=== PATIENT | male | born 1970 | race Caucasian/White ===

== ENCOUNTER 2017-06-08 04:32 | Observation (INO) | payer SELFPAY ==
[~2017-06-08] VITALS: Ht 177.8 cm; Wt 73.0 kg
[2017-06-08] VITALS (7 sets, daily range): BP systolic 109–129; BP diastolic 65–77; PULSE 71–87; RESP 16–18; TEMP 98.1–98.8; O2SAT 95–98
[~2017-06-08 04:32] MED LIST: SERO100T PO
[2017-06-08] MEDS ORDERED: NITROGLYCERIN 0.4 MG SL 25 TABS/BTL SL ONE (04:45)
[2017-06-08] MEDS ORDERED: SODIUM CHLORIDE 0.9% FLUSH 10 ML FLUSH IVF PRN (04:45)
[2017-06-08] MEDS ORDERED: SODIUM CHLORID 0.9% 500 ML INJ 500 ML IV ONE (04:45)
[2017-06-08] MEDS ORDERED: NITROGLYCERIN 2% OINT 1 GM PACKET TOP ONE (04:45)
[2017-06-08 04:55] LABS: AUTOMATED NEUTROPHIL # 10.1 TH/MM3 (1.8-7.7); BASOPHIL # 0.1 TH/MM3 (0-0.2); BASOPHIL % 0.6 % (0.0-2.0); EOSINOPHIL # 0.2 TH/MM3 (0-0.4); EOSINOPHIL % 1.4 % (0.0-4.0); HEMATOCRIT 35.1 % (39.0-51.0); HEMO FLAGS DIFF FINAL; MEAN CELL VOLUME 89.3 FL (80.0-100.0); MEAN CORPUSCULAR HEMOGLOBIN 31.8 PG (27.0-34.0); MEAN CORPUSCULAR HGB CONC 35.6 % (32.0-36.0); MONO % 5.7 % (0.0-8.0); NEUT % 71.3 % (16.0-70.0); PLATELET COUNT 270 TH/MM3 (150-450); RED BLOOD COUNT 3.93 MIL/MM3 (4.50-5.90); RED CELL DISTRIBUTION WIDTH 13.9 % (11.6-17.2); WHITE BLOOD COUNT 14.1 TH/MM3 (4.0-11.0)
[2017-06-08 05:16] LABS: APTT (PATIENT) 26.9 SEC (24.3-30.1); PROTHROMBIN TIME - PATIENT 10.5 SEC (9.8-11.6)
[2017-06-08 05:26] LABS: ALT (GPT) 14 U/L (12-78); ANION GAP 7 MEQ/L (5-15); AST (GOT) 13 U/L (15-37); BICARBONATE 23.7 MEQ/L (21.0-32.0); BLOOD UREA NITROGEN 20 MG/DL (7-18); CHLORIDE 110 MEQ/L (98-107); GLOMERULAR FILTRATION RATE 75 ML/MIN (>89); MAGNESIUM 2.1 MG/DL (1.5-2.5); POTASSIUM 4.1 MEQ/L (3.5-5.1); SODIUM (NA) 141 MEQ/L (136-145)
[2017-06-08 05:30] LABS: ALKALINE PHOSPHATASE 100 U/L (45-117); TOTAL BILIRUBIN ADULT 0.2 MG/DL (0.2-1.0)
[2017-06-08 05:32] LABS: CREATINE KINASE 99 U/L (39-308)
--- NOTE | 2017-06-08 05:33 | RADRPT ---
EXAM DATE/TIME: 06/08/2017 04:56 [place] COMPARISON: No previous studies available for comparison. INDICATIONS : Pt having chest pain tonight MEDICAL HISTORY : None. SURGICAL HISTORY : None. ENCOUNTER: Initial ACUITY: 1 day PAIN SCORE: 7/10 LOCATION: Bilateral chest FINDINGS: Portable AP view of the chest demonstrates a normal-sized cardiac silhouette. No effusion, consolidat ion, or pneumothorax is visualized. The bones and soft tissues demonstrate no acute abnormality. CONCLUSION: No acute cardiopulmonary abnormality is identified. Eddie Wilkes MD on June 08, 2017 at 5:32 Board Certified Radiologist. This report was verified electronically.
--- NOTE | 2017-06-08 06:00 | PD ---
HPI Chief Complaint: Chest Pain Time Seen by Provider: 04:38 Travel History International Travel<30 days: No Contact w/Intl Traveler<30days: No Traveled to known affect area: No History of Present Illness HPI The patient is a 46 year old male who presents to the [facility] emergency department with a history of chest pain that began a month ago. It is coming and going. It is associated with left arm numbness tingling, lightheaded sensation, shortness of breath, and nausea without vomiting. He denies diaphoresis. It began again while he was playing cards approximately 30 minutes prior to arrival. He last used cocaine 2 days ago. He reportedly has a history of having a silent heart attack in his 20s after smoking cocaine and had a seizure. The patient denies ever having stress testing done previously. On review of systems, the patient denies any recent fevers, neck pain, abdominal pain, vomiting, diarrhea, urinary symptoms, or neurologic symptoms. The patient reports that over the last 3-4 days he has had cough and congestion. [facility] Past Medical History Narrative Medical The patient's past medical history is significant for paranoid schizophrenia, silent heart attack in his 20s, bipolar disorder, tobacco use, cocaine use. Asthma: Yes Bipolar Disorder: Yes Diminished Hearing: No Psychiatric: Yes (OCD) Schizophrenia: Yes Seizures: Yes Tetanus Vaccination: > 5 Years Influenza Vaccination: No Past Surgical History Narrative Surgical The patient's past surgical history is significant for a tumor removal from the right eye. Eye Surgery: Yes (TUMOR RIGHT EYE-CANCER) Social History Alcohol Use: No Tobacco Use: Yes (2-3 PPD currently) Substance Use: Yes (COCAINE) Allergies-Medications (Allergen,Severity, Reaction): Coded Allergies: Depakote (Verified Allergy, Unknown, Nausea/Vomiting, 06/08/17) Per pt. Reported Meds & Prescriptions Reported Meds & Active Scripts Active No Active Prescriptions or Reported Medications Review of Systems Except as stated in HPI: all other systems reviewed are Neg General / Constitutional: No: Fever Eyes: No: Visual changes HENT: No: Headaches Cardiovascular: Positive: Chest Pain or Discomfort, Dyspnea on exertion Respiratory: Positive: Shortness of Breath Gastrointestinal: No: Abdominal Pain Genitourinary: No: Dysuria Musculoskeletal: No: Pain Skin: No Rash Neurologic: No: Weakness Psychiatric: No: Depression Endocrine: No: Polydipsia Hematologic/Lymphatic: No: Easy Bruising Physical Exam Narrative General: The patient is a well-developed well-nourished female in no acute distress. Head and Neck exam: Head is normocephalic atraumatic. Eyes: EOMI, pupils are equal round and reactive to light. Nose: Midline septum with pink mucous membranes Mouth: Dentition unremarkable. Moist mucus membranes. Posterior oropharynx is not erythematous. No tonsillar hypertrophy. Uvula midline. Airway patent. Neck: No palpable lymphadenopathy. No nuchal rigidity. No thyromegaly. Cardiovascular: Regular rate and rhythm without murmurs, gallops, or rubs. Lungs: Clear to auscultation bilaterally. No wheezes, rhonchi, or rales. Abdomen: Soft, without tenderness to palpation in all 4 quadrants of the abdomen. No guarding, rebound, or rigidity. Normal bowel sounds are audible. No tenderness on palpation of McBurney's point. Negative [place] sign. Extremities: No clubbing, cyanosis, or edema. 2+ pulses in all 4 extremities. No calf tenderness on palpation. Back: No spinous process tenderness to palpation. No costovertebral angle tenderness to palpation. Neurologic Exam: Grossly nonfocal Skin Exam: No rash noted. Intact skin that is warm and dry. Data Data Last Documented VS Vital Signs Date Time Temp Pulse Resp B/P Pulse Ox O2 Delivery O2 Flow Rate FiO2 06/08/17 06:00 83 17 111/74 95 Room Air 06/08/17 04:37 98.8 Orders Electrocardiogram (06/08/17 04:38) B-Type Natriuretic Peptide (06/08/17 04:38) Ckmb (Isoenzyme) Profile (06/08/17 04:38) Complete Blood Count With Diff (06/08/17 04:38) Comprehensive Metabolic Panel (06/08/17 04:38) Magnesium (Mg) (06/08/17 04:38) Prothrombin Time / Inr (Pt) (06/08/17 04:38) Act Partial Throm Time (Ptt) (06/08/17 04:38) Troponin I (06/08/17 04:38) Lipase (06/08/17 04:38) Chest, Single Ap (06/08/17 04:38) Ecg Monitoring (06/08/17 04:38) Bilateral Bp Monitoring (06/08/17 04:38) Iv Access Insert/Monitor (06/08/17 04:38) Oximetry (06/08/17 04:38) Oxygen Administration (06/08/17 04:38) Nitroglycerin 2% Oint (Nitroglycerin 2% (06/08/17 04:45) Sodium Chloride 0.9% Flush (Ns Flush) (06/08/17 04:45) Nitroglycerin Sl (Nitrostat Sl) (06/08/17 04:45) Sodium Chlorid 0.9% 500 Ml Inj (Ns 500 M (06/08/17 04:45) Admit Order (Ed Use Only) (06/08/17 06:26) Labs Laboratory Tests Test 06/08/17 04:42 White Blood Count 14.1 TH/MM3 Red Blood Count 3.93 MIL/MM3 Hemoglobin 12.5 GM/DL Hematocrit 35.1 % Mean Corpuscular Volume 89.3 FL Mean Corpuscular Hemoglobin 31.8 PG Mean Corpuscular Hemoglobin 35.6 % Concent Red Cell Distribution Width 13.9 % Platelet Count 270 TH/MM3 Mean Platelet Volume 7.1 FL Neutrophils (%) (Auto) 71.3 % Lymphocytes (%) (Auto) 21.0 % Monocytes (%) (Auto) 5.7 % Eosinophils (%) (Auto) 1.4 % Basophils (%) (Auto) 0.6 % Neutrophils # (Auto) 10.1 TH/MM3 Lymphocytes # (Auto) 3.0 TH/MM3 Monocytes # (Auto) 0.8 TH/MM3 Eosinophils # (Auto) 0.2 TH/MM3 Basophils # (Auto) 0.1 TH/MM3 CBC Comment DIFF FINAL Differential Comment Prothrombin Time 10.5 SEC Prothromb Time International 1.0 RATIO Ratio Activated Partial 26.9 SEC Thromboplast Time Sodium Level 141 MEQ/L Potassium Level 4.1 MEQ/L Chloride Level 110 MEQ/L Carbon Dioxide Level 23.7 MEQ/L Anion Gap 7 MEQ/L Blood Urea Nitrogen 20 MG/DL Creatinine 1.06 MG/DL Estimat Glomerular Filtration 75 ML/MIN Rate Random Glucose 92 MG/DL Calcium Level 8.4 MG/DL Magnesium Level 2.1 MG/DL Total Bilirubin 0.2 MG/DL Aspartate Amino Transf 13 U/L (AST/SGOT) Alanine Aminotransferase 14 U/L (ALT/SGPT) Alkaline Phosphatase 100 U/L Total Creatine Kinase 99 U/L Troponin I LESS THAN 0.02 NG/ML B-Type Natriuretic Peptide 11 PG/ML Total Protein 7.0 GM/DL Albumin 3.3 GM/DL Lipase 169 U/L MDM Medical Decision Making Medical Screen Exam Complete: Yes Emergency Medical Condition: Yes Medical Record Reviewed: Yes Interpretation(s) Last Impressions Chest X-Ray 06/08/17 0438 Signed Impressions: Service Date/Time: Thursday, June 08, 2017 04:56 - CONCLUSION: No acute cardiopulmonary abnormality is identified. Eddie Wilkes MD Differential Diagnosis Acute coronary syndrome, versus coronary artery spasm related to cocaine use, versus acid reflux, versus anxiety disorder, versus pleurisy Narrative Course During the course of the patients emergency department visit, the patients history, examination, and differential diagnosis were reviewed with the patient. The patient had IV access obtained and blood work sent for analysis. 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 An ECG was done on arrival that shows a sinus rhythm heart rate of 79, no acute ST segment elevation noted. The patient was initially provided nitroglycerin sublingual 1, normal saline a 500 mL bolus, nitroglycerin 1 inch the chest wall. The patients laboratory studies were reviewed and remarkable for a white count of 14.1, hemoglobin 12.5, platelets 270 with 71.3 neutrophils. , CMP is remarkable for chloride of 110, BUN 20, GFR 75, calcium 8.4, AST 13 and a CPK 99 , troponin I less than 0.02, BNP is 11, lipase 169, PT 10.5, PTT 26.9 Radiology studies were reviewed and remarkable for a chest x-ray that showed no acute cardiopulmonary abnormality. The patients results were discussed with the patient, including the plan of care. I explained that further testing and/ or monitoring is indicated based on the patients history, examination, and/ or laboratory findings. Therefore, I recommended admission for additional evaluation. The patient expressed understanding and was agreeable with this plan. The patient was admitted to the hospital in stable condition and sent to a bed under the care of the chest pain center. Diagnosis Primary Impression: Chest pain, rule out acute myocardial infarction Admitting Information Admitting Physician Requests: Observation Scripts No Active Prescriptions or Reported Meds Elissa Arreola MD Jun 08, 2017 06:00
[2017-06-08] MEDS ORDERED: SODIUM CHLORIDE 0.9% FLUSH 10 ML FLUSH IV FLUSH PRN (07:00)
--- NOTE | 2017-06-08 08:39 | EKG ---
Date Performed: 06/08/2017 Time Performed: 04:37:11 PTAGE: 46 years EKG: Sinus rhythm NORMAL ECG NO PREVIOUS TRACING DOCTOR: Otto Lind Interpretating Date/Time 06/08/2017 08:39:07
[2017-06-08 08:52] LABS: CREATINE KINASE 88 U/L (39-308)
[2017-06-08] MEDS ORDERED: SODIUM CHLORIDE 0.9% FLUSH 10 ML FLUSH IV FLUSH SCH (09:00)
--- NOTE | 2017-06-08 12:25 | HHI.HP ---
HPI Primary Care Physician No Primary Care Physician Chief Complaint Chest pain History of Present Illness This is a 46-year-old male that presents to the ED with a complaint of chest discomfort. Upon trying to get any further information from the patient he would become very upset. He would begin screaming and cursing at me. using cocaine a couple days ago. Also medicine tobacco abuse. Review of Systems ROS Limitations: Uncooperative, Refused Cardiovascular: COMPLAINS OF: Chest pain Past Family Social History Allergies: Coded Allergies: Depakote (Verified Allergy, Unknown, Nausea/Vomiting, 06/08/17) Per pt. Past Medical History Patient would not discuss about his past medical history. Admits to cocaine abuse and tobacco abuse. Past Surgical History Patient would not discuss his surgical history. Reported Medications Reported Meds & Active Scripts Active No Active Prescriptions or Reported Medications Active Ordered Medications Current Medications Medications (Trade) Dose Ordered Sig/Charly Route Start Time Stop Time Status Last Admin (NS Flush) 2 ml UNSCH PRN IVF 06/08/17 04:45 (NS Flush) 2 ml UNSCH PRN IV FLUSH 06/08/17 07:00 (NS Flush) 2 ml BID IV FLUSH 06/08/17 09:00 06/08/17 09:39 Family History Patient would not discuss his family medical history. Social History Patient missed cocaine and tobacco abuse. Physical Exam Vital Signs Vital Signs Date Time Temp Pulse Resp B/P Pulse Ox O2 Delivery O2 Flow Rate FiO2 06/08/17 10:30 71 06/08/17 08:37 98.1 87 16 129/77 97 06/08/17 07:22 98 21 06/08/17 06:00 83 17 111/74 95 Room Air 06/08/17 05:17 17 06/08/17 05:00 80 17 111/65 96 Room Air 06/08/17 04:42 80 18 109/72 98 Room Air 06/08/17 04:37 98.8 80 18 119/77 98 Physical Exam GENERAL: This is a well-nourished, well-developed patient. Patient becomes very upset multiple times. He was able to calm down for Dr. Martin to evaluate him but however he would not really answer any more questions. He allowed us to listen to his heart and lungs. Cardiovascular: Regular rate and rhythm without murmur gallop or rubs. Respiratory: Lungs clear to auscultate bilaterally. No wheezing rales or rhonchi. No use of assessment muscles. Laboratory Laboratory Tests Test 06/08/17 06/08/17 04:42 07:58 White Blood Count 14.1 Red Blood Count 3.93 Hemoglobin 12.5 Hematocrit 35.1 Mean Corpuscular Volume 89.3 Mean Corpuscular Hemoglobin 31.8 Mean Corpuscular Hemoglobin 35.6 Concent Red Cell Distribution Width 13.9 Platelet Count 270 Mean Platelet Volume 7.1 Neutrophils (%) (Auto) 71.3 Lymphocytes (%) (Auto) 21.0 Monocytes (%) (Auto) 5.7 Eosinophils (%) (Auto) 1.4 Basophils (%) (Auto) 0.6 Neutrophils # (Auto) 10.1 Lymphocytes # (Auto) 3.0 Monocytes # (Auto) 0.8 Eosinophils # (Auto) 0.2 Basophils # (Auto) 0.1 CBC Comment DIFF FINAL Differential Comment Prothrombin Time 10.5 Prothromb Time International 1.0 Ratio Activated Partial 26.9 Thromboplast Time Sodium Level 141 Potassium Level 4.1 Chloride Level 110 Carbon Dioxide Level 23.7 Anion Gap 7 Blood Urea Nitrogen 20 Creatinine 1.06 Estimat Glomerular Filtration 75 Rate Random Glucose 92 Calcium Level 8.4 Magnesium Level 2.1 Total Bilirubin 0.2 Aspartate Amino Transf 13 (AST/SGOT) Alanine Aminotransferase 14 (ALT/SGPT) Alkaline Phosphatase 100 Total Creatine Kinase 99 88 Troponin I LESS THAN 0.02 LESS THAN 0.02 B-Type Natriuretic Peptide 11 Total Protein 7.0 Albumin 3.3 Lipase 169 Result Diagram: 06/08/17 0442 06/08/17 0442 Assessment and Plan Assessment and Plan * Chest pain: Patient had first 2 sets of cardiac enzymes and EKGs for ruling out purposes. He was seen by Dr. Maritn cardiology in the chest pain center as well. We were going to do a Moisés protocol ETT which she had agreed to perform however when EKG personnel arrived to his room to take him to the stress from he became irate. Began cursing. Told her to leave the room. I tried to calm the patient down however patient began screaming and cursing at me as well. He began ripping off his monitor leads and was attempting to pull out his IV. He allowed the nurse to pull the IV out however would not allow dressing and stormed out of the room cursing and screaming as he walked down the goncalves. I explained to him he would be leaving AGAINST MEDICAL ADVICE and he just shouted profanity and refuses sign the paperwork. * Cocaine abuse: I did discuss with the patient he should not be using cocaine any longer. * Tobacco abuse: Patient counseled on importance of smoking cessation. * Patient left AMA. Jarrell Fontaine Jun 08, 2017 12:25
--- NOTE | 2017-06-08 12:31 | PD.AMA ---
Against Medical Advice Note Diagnosis: (1) Cocaine abuse (2) Tobacco abuse (3) Left against medical advice Discharge Disposition: Against Medical Advice AMA Statement Patient Gonzalo ReyesJr has decided to leave the hospital against medical advice. This patient has the capacity to refuse care and understands the risks of leaving, including permanent disability and/or , and has had an opportunity to ask questions about his condition. The patient has been informed that he may return for care at any time, and follow up has been arranged/ advised. Jarrell Fontaine Jun 08, 2017 12:31
--- NOTE | 2017-06-09 12:21 | EKG ---
Date Performed: 06/08/2017 Time Performed: 07:54:04 PTAGE: 46 years EKG: Sinus rhythm NONSPECIFIC ST ELEVATION BORDERLINE ECG Since PREVIOUS TRACING , no significant change noted PREVIOUS TRACIN06/08/2017 04.37 DOCTOR: Gabriela Martin Interpretating Date/Time 06/09/2017 12:20:41
== END 2017-06-08 12:50 | disposition left against medical advice (07) ==
LOC: NEPE 04:32 → NEDA 06:28 → NEPFCDU 08:21
DX: R07.89 Other chest pain (principal); R20.0 Anesthesia of skin; R20.2 Paresthesia of skin; R42 Dizziness and giddiness; R06.02 Shortness of breath; R11.0 Nausea; R05 Cough; J45.909 Unspecified asthma, uncomplicated; I25.2 Old myocardial infarction; F31.9 Bipolar disorder, unspecified; F42.9 Obsessive-compulsive disorder, unspecified; F14.90 Cocaine use, unspecified, uncomplicated; F17.200 Nicotine dependence, unspecified, uncomplicated
CPT/HCPCS: 71010; 80053; 82550; 83690; 83735; 83880; 84484; 85025; 85610; 85730; 93005; 96360; 99285; G0378; J7040

== ENCOUNTER 2017-06-09 02:44 | Observation (INO) | payer SELFPAY ==
[~2017-06-09] VITALS: Ht 177.8 cm; Wt 70.0 kg
[2017-06-09 02:46] VITALS: BP 132/77; PULSE 78; RESP 16; TEMP 98.2; O2SAT 97
--- NOTE | 2017-06-09 03:13 | PD ---
HPI Chief Complaint: Chest Pain Time Seen by Provider: 02:59 Travel History International Travel<30 days: No Contact w/Intl Traveler<30days: No Traveled to known affect area: No History of Present Illness HPI The patient is a 46-year-old male who presents emergency department for chest pain. The patient states he's had intermittent chest pain or last several days which is located in the left side, radiates to the left scapula, sharp, and feels like a "plunger on my lungs". The patient does note mild shortness of breath, nausea, and diaphoresis with this chest pain. He denies any exertional activity. He does note he has "pins and needles "of the left upper extremity that is associated with this chest pain. He also complains of occasional blurry vision from both eyes when experiencing the chest pain. He denies any known history of hypertension, hyperlipidemia, diabetes, or CAD. He does have a history tobacco use at 2 packs per day, also states both of his parents had heart disease in their 60s. He denies any previous stress test. He was admitted to the chest pain Center yesterday, however, started using profanity at staff and left against medical secretary teacher. The patient's symptoms are moderate, there are no current alleviating or exacerbating factors. PFSH Past Medical History Asthma: Yes Bipolar Disorder: Yes Diminished Hearing: No Psychiatric: Yes (OCD) Schizophrenia: Yes Seizures: Yes Tetanus Vaccination: < 5 Years Influenza Vaccination: No Past Surgical History Eye Surgery: Yes (TUMOR RIGHT EYE-CANCER) Social History Alcohol Use: No Tobacco Use: Yes (2-3 PPD currently) Substance Use: Yes (COCAINE) Allergies-Medications (Allergen,Severity, Reaction): Coded Allergies: Depakote (Verified Allergy, Unknown, Nausea/Vomiting, 06/09/17) Per pt. Reported Meds & Prescriptions Reported Meds & Active Scripts Active No Active Prescriptions or Reported Medications Review of Systems Except as stated in HPI: all other systems reviewed are Neg General / Constitutional: No: Fever Eyes: Positive: Blurred Vision Cardiovascular: Positive: Chest Pain or Discomfort, Diaphoresis Respiratory: Positive: Shortness of Breath, Pleuritic Pain Gastrointestinal: Positive: Nausea Musculoskeletal: No: Edema Neurologic: No: Dizziness Physical Exam Narrative GENERAL: Awake, alert, pleasant 46-year-old male who appears his stated age and is in no acute respiratory distress. SKIN: Focused skin assessment warm/dry. HEAD: Atraumatic. Normocephalic. EYES: Pupils equal and round. No injection or drainage. ENT: No nasal bleeding or discharge. Breath smells of tobacco. NECK: Trachea midline. No JVD. CARDIOVASCULAR: Regular rate and rhythm. No murmur appreciated. RESPIRATORY: No accessory muscle use. Clear to auscultation. Breath sounds equal bilaterally. GASTROINTESTINAL: Abdomen soft, non-tender, nondistended. MUSCULOSKELETAL: No obvious deformities. No clubbing. No cyanosis. No edema. NEUROLOGICAL: Awake and alert. No obvious cranial nerve deficits. Motor grossly within normal limits. Normal speech. Nonfocal. PSYCHIATRIC: Odd affect. Data Data Last Documented VS Vital Signs Date Time Temp Pulse Resp B/P Pulse Ox O2 Delivery O2 Flow Rate FiO2 06/09/17 03:20 97 Room Air 06/09/17 03:15 82 18 126/84 06/09/17 02:46 98.2 Orders Electrocardiogram (06/09/17 03:05) Ckmb (Isoenzyme) Profile (06/09/17 03:05) Complete Blood Count With Diff (06/09/17 03:05) Comprehensive Metabolic Panel (06/09/17 03:05) Magnesium (Mg) (06/09/17 03:05) Prothrombin Time / Inr (Pt) (06/09/17 03:05) Act Partial Throm Time (Ptt) (06/09/17 03:05) Troponin I (06/09/17 03:05) Ecg Monitoring (06/09/17 03:05) Iv Access Insert/Monitor (06/09/17 03:05) Oximetry (06/09/17 03:05) Oxygen Administration (06/09/17 03:05) Aspirin Chew (Aspirin Chew) (06/09/17 03:15) Sodium Chloride 0.9% Flush (Ns Flush) (06/09/17 03:15) Nitroglycerin Sl (Nitrostat Sl) (06/09/17 03:15) Sodium Chlorid 0.9% 500 Ml Inj (Ns 500 M (06/09/17 03:15) Labs Laboratory Tests Test 06/09/17 03:20 White Blood Count 8.9 TH/MM3 Red Blood Count 4.11 MIL/MM3 Hemoglobin 12.4 GM/DL Hematocrit 37.2 % Mean Corpuscular Volume 90.4 FL Mean Corpuscular Hemoglobin 30.2 PG Mean Corpuscular Hemoglobin 33.4 % Concent Red Cell Distribution Width 13.7 % Platelet Count 265 TH/MM3 Mean Platelet Volume 7.0 FL Neutrophils (%) (Auto) 43.1 % Lymphocytes (%) (Auto) 42.4 % Monocytes (%) (Auto) 9.3 % Eosinophils (%) (Auto) 4.1 % Basophils (%) (Auto) 1.1 % Neutrophils # (Auto) 3.8 TH/MM3 Lymphocytes # (Auto) 3.8 TH/MM3 Monocytes # (Auto) 0.8 TH/MM3 Eosinophils # (Auto) 0.4 TH/MM3 Basophils # (Auto) 0.1 TH/MM3 CBC Comment DIFF FINAL Differential Comment Prothrombin Time 10.4 SEC Prothromb Time International 0.9 RATIO Ratio Activated Partial 27.3 SEC Thromboplast Time Sodium Level 142 MEQ/L Potassium Level 4.2 MEQ/L Chloride Level 107 MEQ/L Carbon Dioxide Level 27.7 MEQ/L Anion Gap 7 MEQ/L Blood Urea Nitrogen 16 MG/DL Creatinine 0.93 MG/DL Estimat Glomerular Filtration 87 ML/MIN Rate Random Glucose 83 MG/DL Calcium Level 8.4 MG/DL Magnesium Level 2.0 MG/DL Total Bilirubin 0.3 MG/DL Aspartate Amino Transf 8 U/L (AST/SGOT) Alanine Aminotransferase 13 U/L (ALT/SGPT) Alkaline Phosphatase 99 U/L Total Creatine Kinase 93 U/L Troponin I LESS THAN 0.02 NG/ML Total Protein 7.0 GM/DL Albumin 3.2 GM/DL MDM Medical Decision Making Medical Screen Exam Complete: Yes Emergency Medical Condition: Yes Medical Record Reviewed: Yes Interpretation(s) EKG reveals normal sinus rhythm with a rate of 76. No ischemic changes or ectopy noted. Laboratory Tests Test 06/09/17 03:20 White Blood Count 8.9 TH/MM3 Red Blood Count 4.11 MIL/MM3 Hemoglobin 12.4 GM/DL Hematocrit 37.2 % Mean Corpuscular Volume 90.4 FL Mean Corpuscular Hemoglobin 30.2 PG Mean Corpuscular Hemoglobin 33.4 % Concent Red Cell Distribution Width 13.7 % Platelet Count 265 TH/MM3 Mean Platelet Volume 7.0 FL Neutrophils (%) (Auto) 43.1 % Lymphocytes (%) (Auto) 42.4 % Monocytes (%) (Auto) 9.3 % Eosinophils (%) (Auto) 4.1 % Basophils (%) (Auto) 1.1 % Neutrophils # (Auto) 3.8 TH/MM3 Lymphocytes # (Auto) 3.8 TH/MM3 Monocytes # (Auto) 0.8 TH/MM3 Eosinophils # (Auto) 0.4 TH/MM3 Basophils # (Auto) 0.1 TH/MM3 CBC Comment DIFF FINAL Differential Comment Prothrombin Time 10.4 SEC Prothromb Time International 0.9 RATIO Ratio Activated Partial 27.3 SEC Thromboplast Time Sodium Level 142 MEQ/L Potassium Level 4.2 MEQ/L Chloride Level 107 MEQ/L Carbon Dioxide Level 27.7 MEQ/L Anion Gap 7 MEQ/L Blood Urea Nitrogen 16 MG/DL Creatinine 0.93 MG/DL Estimat Glomerular Filtration 87 ML/MIN Rate Random Glucose 83 MG/DL Calcium Level 8.4 MG/DL Magnesium Level 2.0 MG/DL Total Bilirubin 0.3 MG/DL Aspartate Amino Transf 8 U/L (AST/SGOT) Alanine Aminotransferase 13 U/L (ALT/SGPT) Alkaline Phosphatase 99 U/L Total Creatine Kinase 93 U/L Troponin I LESS THAN 0.02 NG/ML Total Protein 7.0 GM/DL Albumin 3.2 GM/DL Differential Diagnosis Differential diagnosis includes acute coronary syndrome, pleurisy, pneumonia, pulmonary embolism, pancreatitis, pericarditis, myocarditis. Narrative Course IV was established, labs are drawn and sent, and the patient was placed on cardiac telemetry monitoring and continuous pulse oximetry monitoring. EKG was ordered and interpreted. The patient was administered aspirin, nitroglycerin sublingual, and IV fluids. I reviewed the patient's medical course from June 08 where he had 2 negative troponins, chest x-ray was unremarkable, however, he became verbally abusive and left the hospital prior to obtaining a stress test. The patient does have atypical symptoms with 2 risk factors, therefore, will be 23 hour observation to the chest pain Center. He denies any cocaine use in the last 48 hours. The patient's initial troponin is negative, therefore, patient will be placed in the chest pain Center. Physician Communication Physician Communication The patient will be 23 hour observation to the chest pain center. Diagnosis Primary Impression: Chest pain Qualified Code: R07.9 - Chest pain, unspecified type Admitting Information Admitting Physician Requests: Observation Scripts No Active Prescriptions or Reported Meds Condition: Stable Sylvain Schulte MD Jun 09, 2017 03:13
[2017-06-09 03:15] VITALS: BP 126/84; PULSE 82; RESP 18; O2SAT 97
[2017-06-09] MEDS ORDERED: SODIUM CHLORID 0.9% 500 ML INJ 500 ML IV ONE (03:15)
[2017-06-09] MEDS ORDERED: NITROGLYCERIN 0.4 MG SL 25 TABS/BTL SL ONE (03:15)
[2017-06-09] MEDS ORDERED: ASPIRIN 81 MG CHEW TAB PO ONE (03:15)
[2017-06-09] MEDS ORDERED: SODIUM CHLORIDE 0.9% FLUSH 10 ML FLUSH IVF PRN (03:15)
[2017-06-09 03:56] LABS: AUTOMATED NEUTROPHIL # 3.8 TH/MM3 (1.8-7.7); BASOPHIL # 0.1 TH/MM3 (0-0.2); BASOPHIL % 1.1 % (0.0-2.0); EOSINOPHIL # 0.4 TH/MM3 (0-0.4); EOSINOPHIL % 4.1 % (0.0-4.0); HEMATOCRIT 37.2 % (39.0-51.0); HEMO FLAGS DIFF FINAL; LYMPH % 42.4 % (9.0-44.0); LYMPHOCYTE # 3.8 TH/MM3 (1.0-4.8); MEAN CELL VOLUME 90.4 FL (80.0-100.0); MEAN CORPUSCULAR HEMOGLOBIN 30.2 PG (27.0-34.0); MEAN CORPUSCULAR HGB CONC 33.4 % (32.0-36.0); MONO % 9.3 % (0.0-8.0); NEUT % 43.1 % (16.0-70.0); PLATELET COUNT 265 TH/MM3 (150-450); RED BLOOD COUNT 4.11 MIL/MM3 (4.50-5.90); RED CELL DISTRIBUTION WIDTH 13.7 % (11.6-17.2); WHITE BLOOD COUNT 8.9 TH/MM3 (4.0-11.0)
[2017-06-09 04:01] LABS: APTT (PATIENT) 27.3 SEC (24.3-30.1); INTERNATIONAL NORMALIZED RATIO 0.9 RATIO; PROTHROMBIN TIME - PATIENT 10.4 SEC (9.8-11.6)
[2017-06-09 04:15] LABS: ALT (GPT) 13 U/L (12-78); ANION GAP 7 MEQ/L (5-15); AST (GOT) 8 U/L (15-37); BICARBONATE 27.7 MEQ/L (21.0-32.0); BLOOD UREA NITROGEN 16 MG/DL (7-18); CHLORIDE 107 MEQ/L (98-107); GLOMERULAR FILTRATION RATE 87 ML/MIN (>89); POTASSIUM 4.2 MEQ/L (3.5-5.1); SODIUM (NA) 142 MEQ/L (136-145)
[2017-06-09 04:19] LABS: ALKALINE PHOSPHATASE 99 U/L (45-117); TOTAL BILIRUBIN ADULT 0.3 MG/DL (0.2-1.0)
[2017-06-09 04:25] LABS: CREATINE KINASE 93 U/L (39-308)
[2017-06-09] MEDS ORDERED: ONDANSETRON HCL 4 MG/2 ML VIAL IV PRN (04:30)
[2017-06-09] MEDS ORDERED: ACETAMINOPHEN 500 MG CPLT PO PRN (04:30)
[2017-06-09] MEDS ORDERED: NITROGLYCERIN 0.4 MG SL 25 TABS/BTL SL PRN (04:30)
[2017-06-09] MEDS ORDERED: SODIUM CHLORIDE 0.9% FLUSH 10 ML FLUSH IV FLUSH PRN (04:30)
[2017-06-09] MEDS ORDERED: MORPHINE SULFATE 4 MG/ML INJ IV PRN (04:30)
[2017-06-09] MEDS ORDERED: ACETAMINOPHEN/HYDROcodone 325 MG/7.5 MG TAB PO PRN (04:30)
[2017-06-09 06:37] VITALS: BP 116/65; PULSE 75; RESP 18; O2SAT 98
[2017-06-09 07:48] LABS: CREATINE KINASE 77 U/L (39-308)
--- NOTE | 2017-06-09 08:17 | HHI.HP ---
HPI Primary Care Physician No Primary Care Physician Chief Complaint Chest pain History of Present Illness 46-year-old male with history asthma and bipolar presents to emergency room for further evaluation of chest pain. Onset 2 days ago. Location left anterior chest. Characterized as a sharp, stabbing pain. Radiation to left shoulder. Left arm reported to be normal light "pins and needles." Hurt to take a deep breath. Associated symptoms included nausea. No vomiting, shortness of breath , or diaphoresis. No particular movements makes pain better or worse. No known precipitating or relieving factors. Patient actually was admitted to chest pain center yesterday and signed out AMA prior to stress test. States he continues to have intermittent chest pain therefore decided to return to the ER for stress testing as planned yesterday. Review of Systems General: No fatigue,weakness, fever, chills, recent illness, or change in appetite. Has been his general state of health, regular cocaine use. HEENT: No BALDERAS, no vision changes CV: As stated above. Denies any current chest pain or pressure. No palpitations, intermittent leg pain, or dizziness. RESP: No SOB, cough, wheeze, sputum production, or history of asthma (differs from asthma diagnosis in chart). Smokes 2 packs cigarettes daily. GI: No nausea, vomiting, bowel changes, diarrhea, constipation, pain, or distention. : No dysuria EXT: No lower leg edema MS: No discomfort or change in ROM, no known trauma to chest, left arm, or left shoulder NEURO: No difficulty with balance, LOC, motor/sensory deficits PSYCH: History of bipolar. Denies anxiety, depression, or suicidal ideation. Endorses risky behavior of substance abuse since the of his son last year. SKIN: No rashes, no concerning lesions Past Family Social History Allergies: Coded Allergies: Depakote (Verified Allergy, Unknown, Nausea/Vomiting, 06/09/17) Per pt. Past Medical History Bipolar Past Surgical History Ocular surgeryright Reported Medications Active No Active Prescriptions or Reported Medications Active Ordered Medications Current Medications Medications (Trade) Dose Ordered Sig/Charly Route Start Time Stop Time Status Last Admin (Tylenol) 500 mg Q4H PRN PO 06/09/17 04:30 (Oceana 7.5-325 Mg) 1 tab Q4H PRN PO 06/09/17 04:30 (Morphine Inj) 2 mg Q4H PRN IV 06/09/17 04:30 (Zofran Inj) 4 mg Q6H PRN IV 06/09/17 04:30 (Nitrostat Sl) 0.4 mg Q5M PRN SL 06/09/17 04:30 Family History Noncontributory for early onset cardiovascular disease. Mother and father coronary artery disease in their 60s. Social History No known diabetes, hyperlipidemia, or hypertension. Smokes 2 packs/daily. Endorses regular cocaine use, denies any other use of illegal drugs. Past cardiac testing None Physical Exam Vital Signs Vital Signs Date Time Temp Pulse Resp B/P Pulse Ox O2 Delivery O2 Flow Rate FiO2 06/09/17 06:37 75 18 116/65 98 Room Air 06/09/17 03:20 97 Room Air 06/09/17 03:15 82 18 126/84 97 Room Air 06/09/17 02:50 Room Air 06/09/17 02:46 98.2 78 16 132/77 97 Room Air Physical Exam GENERAL: Alert WN, WD, NAD, thin, unkempt male who appears older than stated age. HEAD: NC, AT EYES: Sclera clear, conjunctiva without injection, ENT: Mucous membranes pink and moist CV: RRR, without murmur, rub, gallop, no JVD, S1-S2 no S3-S4. RESP: Clear lungs throughout bilateral, no crackles, wheeze, rhonchi, symmetrical chest rise, nonlabored, able to speak in full sentences ABD: Soft, NT, ND, no masses, positive bowel tones BACK: No CVAT, no scoliosis EXT: Pulses +24, no dependent edema MS: Normal tone 4 extremities, nontender, no obvious deformities, full range of motion NEURO: CN II through CN XII grossly intact, motor strength 5/5, gait WNL PSYCH: A+O 3, pleasant affect, appropriate speech, appropriate mood and affect , insight and judgment SKIN: Normal turgor, normal texture, no lesions, no rashes Laboratory Laboratory Tests Test 06/09/17 06/09/17 03:20 06:30 White Blood Count 8.9 Red Blood Count 4.11 Hemoglobin 12.4 Hematocrit 37.2 Mean Corpuscular Volume 90.4 Mean Corpuscular Hemoglobin 30.2 Mean Corpuscular Hemoglobin 33.4 Concent Red Cell Distribution Width 13.7 Platelet Count 265 Mean Platelet Volume 7.0 Neutrophils (%) (Auto) 43.1 Lymphocytes (%) (Auto) 42.4 Monocytes (%) (Auto) 9.3 Eosinophils (%) (Auto) 4.1 Basophils (%) (Auto) 1.1 Neutrophils # (Auto) 3.8 Lymphocytes # (Auto) 3.8 Monocytes # (Auto) 0.8 Eosinophils # (Auto) 0.4 Basophils # (Auto) 0.1 CBC Comment DIFF FINAL Differential Comment Prothrombin Time 10.4 Prothromb Time International 0.9 Ratio Activated Partial 27.3 Thromboplast Time Sodium Level 142 Potassium Level 4.2 Chloride Level 107 Carbon Dioxide Level 27.7 Anion Gap 7 Blood Urea Nitrogen 16 Creatinine 0.93 Estimat Glomerular Filtration 87 Rate Random Glucose 83 Calcium Level 8.4 Magnesium Level 2.0 Total Bilirubin 0.3 Aspartate Amino Transf 8 (AST/SGOT) Alanine Aminotransferase 13 (ALT/SGPT) Alkaline Phosphatase 99 Total Creatine Kinase 93 77 Troponin I LESS THAN 0.02 LESS THAN 0.02 Total Protein 7.0 Albumin 3.2 Result Diagram: 06/09/1731906/09/17 032 Course EKGs Normal sinus rhythm, normal axis, no ST or T-segment changes Assessment and Plan Assessment and Plan #1 Atypical chest painadmitted to chest pain center. Ruled out with 2 sets of EKGs and cardiac enzymes. Seen and evaluated by Dr. Gabriela Martin. Will proceed with exercise stress test. Patient is agreeable to plan of care. Naturally, if stress test unremarkable he will later discharged this afternoon. Discussed with patient in length intermittent chest pain most likely related to frequent cocaine use. #2 Tobacco usestrongly encouraged and stressed the importance of tobacco sensation. Discussed and counseled patient to quit smoking. #3 Cocaine usecounseled on risk of cocaine use, risk of NM, and even . Discussed importance of stopping cocaine use. Yris Liang Jun 09, 2017 08:17
[2017-06-09] MEDS ORDERED: SODIUM CHLORIDE 0.9% FLUSH 10 ML FLUSH IV FLUSH SCH (09:00)
--- NOTE | 2017-06-09 11:09 | HHI.DCPOC ---
Discharge Care Plan Diagnosis: (1) Atypical chest pain (2) Tobacco abuse (3) Cocaine abuse Goals to Promote Your Health * To prevent worsening of your condition and complications * To maintain your health at the optimal level Directions to Meet Your Goals Take your medications as prescribed Follow your dietary instruction Follow activity as directed Keep your appointments as scheduled Take your immunizations and boosters as scheduled If your symptoms worsen call your PCP, if no PCP go to Urgent Care Center or Emergency Room Smoking is Dangerous to Your Health. Avoid second hand smoke Call the 24-hour hour crisis hotline for domestic abuse at Yris Liang Jun 09, 2017 11:09
[2017-06-09 11:20] LABS: CREATINE KINASE 81 U/L (39-308)
--- NOTE | 2017-06-09 12:14 | EKG ---
Date Performed: 06/09/2017 Time Performed: 06:41:40 PTAGE: 46 years EKG: Sinus rhythm WITH SINUS ARRHYTHMIA NORMAL ECG Since PREVIOUS TRACING , no significant change noted PREVIOUS TRACIN06/08/2017 07.54 DOCTOR: Gabriela Martin Interpretating Date/Time 06/09/2017 12:12:48
--- NOTE | 2017-06-09 12:14 | TR ---
Date Performed: 06/09/2017 Time Performed: 09:55:14 DOCTOR: Gabriela Martin DRUG LIST: CLINICAL HISTORY: CHEST PAIN R/O ACS REASON FOR TEST: REASON FOR ENDING: OBSERVATION: CONCLUSION: Moisés protocol attempted. Stopped sec to leg fatigue. Maximum AY=604 Target HR Achie trell=82.0% Maximum OS=054/86 Total Exercise Time=11:51.No reprod chest pain or discomfort. Complaints of shortness of breath at peak. Upsloping J point depression anterior lateral, otherwise no st depres johnna. Rare PVC. Normal bp response. Recovery quick and unremarkable. Suboptimal testing due to target percentage however ambulated 11:51mins. COMMENTS:
--- NOTE | 2017-06-09 12:15 | EKG ---
Date Performed: 06/09/2017 Time Performed: 03:14:17 PTAGE: 46 years EKG: Sinus rhythm NORMAL ECG Since previous tracing, no significant change noted NO PREVIOUS TRACING DOCTOR: Gabriela Martin Interpretating Date/Time 06/09/2017 12:14:16
== END 2017-06-09 12:41 | disposition home or self-care (01) ==
LOC: NEPE 02:44 → NEDA 04:31
PROVIDERS: ADMIT Internal Medicine Cardiovascular Disease; ATTEND Internal Medicine Cardiovascular Disease
DX: R07.89 Other chest pain (principal); J45.909 Unspecified asthma, uncomplicated; F20.9 Schizophrenia, unspecified; F14.10 Cocaine abuse, uncomplicated; F17.200 Nicotine dependence, unspecified, uncomplicated; F31.9 Bipolar disorder, unspecified; Z71.6 Tobacco abuse counseling; Z82.49 Family history of ischemic heart disease and other diseases of the circulatory system; F42.9 Obsessive-compulsive disorder, unspecified; H53.8 Other visual disturbances
CPT/HCPCS: 80053; 82550; 83735; 84484; 85025; 85610; 85730; 93005; 93017; 96360; 99285; G0378; J7040

== ENCOUNTER 2017-06-19 23:49 | Emergency (ER) | payer OTHER ==
[2017-06-20 00:15] VITALS: BP 110/70; PULSE 85; RESP 18; TEMP 97.8; O2SAT 99
--- NOTE | 2017-06-20 00:22 | PD ---
HPI Chief Complaint: ba Time Seen by Provider: 12:05 Travel History International Travel<30 days: No Contact w/Intl Traveler<30days: No Traveled to known affect area: No History of Present Illness HPI 46-year-old male presents under Tran act initiated by the Police Department. The patient reports a history of paranoid schizophrenia. He reports that he is currently staying with a friend however the friend went out of town and the patient has been feeling increasingly depressed and suicidal. Today he called the police and he has plus under Tran act. Specifically he has had thoughts of jumping off a bridge. He admits to using some cocaine and Xanax today. He denies any homicidal ideation, auditory or visual hallucination. He reports that he is currently not seeing a psychiatrist or been treated for schizophrenia. He has no other complaints at this time. PFSH Past Medical History Asthma: Yes Bipolar Disorder: Yes Diminished Hearing: No Psychiatric: Yes (OCD) Schizophrenia: Yes Seizures: Yes Past Surgical History Eye Surgery: Yes (TUMOR RIGHT EYE-CANCER) Social History Alcohol Use: No Tobacco Use: Yes (2-3 PPD currently) Substance Use: Yes (COCAINE) Allergies-Medications (Allergen,Severity, Reaction): Coded Allergies: Depakote (Verified Allergy, Unknown, Nausea/Vomiting, 06/09/17) Per pt. Reported Meds & Prescriptions Reported Meds & Active Scripts Active No Active Prescriptions or Reported Medications Review of Systems Except as stated in HPI: all other systems reviewed are Neg Physical Exam Narrative GENERAL: Somewhat disheveled-appearing male who is in no acute distress. He is polite, calm, interacting appropriately. SKIN: Warm and dry. HEAD: Atraumatic. Normocephalic. EYES: Pupils equal and round. No scleral icterus. No injection or drainage. ENT: No nasal bleeding or discharge. Mucous membranes pink and moist. NECK: Trachea midline. No JVD. CARDIOVASCULAR: Regular rate and rhythm. No murmur appreciated. RESPIRATORY: No accessory muscle use. Clear to auscultation. Breath sounds equal bilaterally. GASTROINTESTINAL: Abdomen soft, non-tender, nondistended. Hepatic and splenic margins not palpable. MUSCULOSKELETAL: No obvious deformities. No edema. NEUROLOGICAL: Awake and alert. No obvious cranial nerve deficits. Motor grossly within normal limits. Normal speech. PSYCHIATRIC: Appropriate mood and affect; insight and judgment normal. Data Data Last Documented VS Vital Signs Date Time Temp Pulse Resp B/P Pulse Ox O2 Delivery O2 Flow Rate FiO2 06/20/17 00:30 18 06/20/17 00:15 97.8 85 110/70 99 Orders Complete Blood Count With Diff (06/20/17 00:12) Comprehensive Metabolic Panel (06/20/17 00:12) Psych Screen (06/20/17 00:12) Drug Screen, Random Urine (06/20/17 00:12) Alcohol (Ethanol) (06/20/17 00:12) Salicylates (Aspirin) (06/20/17 00:12) Tylenol (Acetaminophen) (06/20/17 00:12) Labs Laboratory Tests Test 06/20/17 00:16 White Blood Count 11.1 TH/MM3 Red Blood Count 4.33 MIL/MM3 Hemoglobin 13.2 GM/DL Hematocrit 39.1 % Mean Corpuscular Volume 90.2 FL Mean Corpuscular Hemoglobin 30.4 PG Mean Corpuscular Hemoglobin 33.7 % Concent Red Cell Distribution Width 13.9 % Platelet Count 280 TH/MM3 Mean Platelet Volume 7.5 FL Neutrophils (%) (Auto) 55.4 % Lymphocytes (%) (Auto) 33.7 % Monocytes (%) (Auto) 6.7 % Eosinophils (%) (Auto) 3.0 % Basophils (%) (Auto) 1.2 % Neutrophils # (Auto) 6.2 TH/MM3 Lymphocytes # (Auto) 3.8 TH/MM3 Monocytes # (Auto) 0.7 TH/MM3 Eosinophils # (Auto) 0.3 TH/MM3 Basophils # (Auto) 0.1 TH/MM3 CBC Comment DIFF FINAL Differential Comment Sodium Level 142 MEQ/L Potassium Level 3.8 MEQ/L Chloride Level 104 MEQ/L Carbon Dioxide Level 30.3 MEQ/L Anion Gap 8 MEQ/L Blood Urea Nitrogen 20 MG/DL Creatinine 1.41 MG/DL Estimat Glomerular Filtration 54 ML/MIN Rate Random Glucose 107 MG/DL Calcium Level 8.9 MG/DL Total Bilirubin 0.3 MG/DL Aspartate Amino Transf 10 U/L (AST/SGOT) Alanine Aminotransferase 13 U/L (ALT/SGPT) Alkaline Phosphatase 131 U/L Total Protein 7.7 GM/DL Albumin 3.5 GM/DL Salicylates Level 2.3 MG/DL Urine Opiates Screen NEG Acetaminophen Level LESS THAN 2.0 MCG/ML Urine Barbiturates Screen NEG Urine Amphetamines Screen NEG Urine Benzodiazepines Screen NEG Urine Cocaine Screen POS Urine Cannabinoids Screen NEG Ethyl Alcohol Level LESS THAN 3 MG/DL MDM Medical Decision Making Medical Screen Exam Complete: Yes Emergency Medical Condition: Yes Medical Record Reviewed: Yes Differential Diagnosis Schizophrenia, medication noncompliance, adjustment reaction, acute psychosis, substance induced mood disorder, major depressive disorder Narrative Course 46-year-old male with history of paranoid schizophrenia presents under Tran act for evaluation of suicidal ideation. Mental health screening discussed with the patient. Psychiatric screen ordered. Lab work has been reviewed. The patient is medically cleared. Diagnosis Primary Impression: Medical clearance for psychiatric admission Scripts No Active Prescriptions or Reported Meds Femi Veliz Jun 20, 2017 00:22
[2017-06-20 01:10] LABS: AUTOMATED NEUTROPHIL # 6.2 TH/MM3 (1.8-7.7); BASOPHIL # 0.1 TH/MM3 (0-0.2); BASOPHIL % 1.2 % (0.0-2.0); EOSINOPHIL # 0.3 TH/MM3 (0-0.4); HEMATOCRIT 39.1 % (39.0-51.0); HEMO FLAGS DIFF FINAL; LYMPH % 33.7 % (9.0-44.0); LYMPHOCYTE # 3.8 TH/MM3 (1.0-4.8); MEAN CELL VOLUME 90.2 FL (80.0-100.0); MEAN CORPUSCULAR HEMOGLOBIN 30.4 PG (27.0-34.0); MEAN CORPUSCULAR HGB CONC 33.7 % (32.0-36.0); MONO % 6.7 % (0.0-8.0); NEUT % 55.4 % (16.0-70.0); PLATELET COUNT 280 TH/MM3 (150-450); RED BLOOD COUNT 4.33 MIL/MM3 (4.50-5.90); RED CELL DISTRIBUTION WIDTH 13.9 % (11.6-17.2); WHITE BLOOD COUNT 11.1 TH/MM3 (4.0-11.0)
[2017-06-20 01:12] LABS: AMPHETAMINE, URINE NEG (NEG); BARBITURATES, URINE NEG (NEG); COCAINE, URINE POS (NEG)
[2017-06-20 01:23] LABS: ACETAMINOPHEN LESS THAN 2.0 MCG/ML (10.0-30.0); ALT (GPT) 13 U/L (12-78); ANION GAP 8 MEQ/L (5-15); AST (GOT) 10 U/L (15-37); BICARBONATE 30.3 MEQ/L (21.0-32.0); BLOOD UREA NITROGEN 20 MG/DL (7-18); CHLORIDE 104 MEQ/L (98-107); GLOMERULAR FILTRATION RATE 54 ML/MIN (>89); POTASSIUM 3.8 MEQ/L (3.5-5.1); SODIUM (NA) 142 MEQ/L (136-145)
[2017-06-20 01:25] LABS: ALKALINE PHOSPHATASE 131 U/L (45-117); TOTAL BILIRUBIN ADULT 0.3 MG/DL (0.2-1.0)
== END 2017-06-20 03:03 ==
LOC: NEPD 23:49 → NEPJ 06-20 03:03
DX: Z02.89 Encounter for other administrative examinations (principal); F20.0 Paranoid schizophrenia
CPT/HCPCS: 80053; 80307; 85025; 99285

== ENCOUNTER 2017-06-26 04:56 | Emergency (ER) | payer SELFPAY ==
[~2017-06-26] VITALS: Ht 177.8 cm; Wt 70.0 kg
[2017-06-26 05:03] VITALS: BP 127/83; PULSE 92; RESP 14; TEMP 98.5; O2SAT 96
[2017-06-26] MEDS ORDERED: TRAZ100T6 PO (05:06)
[2017-06-26] MEDS ORDERED: VENL50TA PO (05:06)
--- NOTE | 2017-06-26 05:18 | PD ---
HPI Chief Complaint: Pain: Acute or Chronic Time Seen by Provider: 05:15 Travel History International Travel<30 days: No Contact w/Intl Traveler<30days: No Traveled to known affect area: No History of Present Illness HPI 46-year-old white male presents to emergency department by EMS for evaluation of right foot pain. The patient states that he injured his foot 2 years ago while he was in long-term. He states that he has had pain intermittently since then. The patient claims that he's had increasing pain over last few days along the inside aspect of the distal forefoot. He denies any numbness or tingling. He states the pain is worse when he walks. Some relief with elevation and limited activity. He has not taken anything for pain yet. Patient states that he was just discharged 2 days ago from [facility]. He states that he has paranoid schizophrenia. He also has a history of substance abuse. He abuses cocaine and Xanax. PFSH Past Medical History Narrative Medical Polysubstance abuse, paranoid schizophrenia Asthma: Yes Bipolar Disorder: Yes Diminished Hearing: No Psychiatric: Yes (OCD) Schizophrenia: Yes Seizures: Yes Tetanus Vaccination: < 5 Years Influenza Vaccination: No Past Surgical History Eye Surgery: Yes (TUMOR RIGHT EYE-CANCER) Social History Alcohol Use: No Tobacco Use: Yes (1PPD) Substance Use: Yes (COKE) Allergies-Medications (Allergen,Severity, Reaction): Coded Allergies: Depakote (Verified Allergy, Unknown, Nausea/Vomiting, 06/26/17) Per pt. Reported Meds & Prescriptions Reported Meds & Active Scripts Active Reported Effexor (Venlafaxine HCl) 50 Mg Tab 50 Mg PO Q12H Trazodone (Trazodone HCl) 100 Mg Tablet 100 Mg PO HS Review of Systems Except as stated in HPI: all other systems reviewed are Neg Physical Exam Narrative GENERAL: This is a well-nourished, well-developed patient, in no apparent distress. SKIN: No rashes, ecchymoses or lesions. Warm and dry. HEAD: Atraumatic. Normocephalic. EYES: PERRL, EOMI, no discharge or injection. No scleral icterus. EARS: Clear NOSE: Nasal turbinates appear normal. THROAT: Mucosa pink and moist. Airway patent. NECK: Trachea midline. supple, moves head freely. LUNGS: Clear to auscultation. CV: Regular in rhythm. ABDOMEN: Soft nontender. EXT: No clubbing cyanosis or edema. Examination of the right foot reveals tenderness along the first metatarsal into the ball the foot and the great toe. There is no obvious deformity. Skin is intact. There is no erythema or warmth. He has intact sensation with good distal pulses. Patient is able to ambulate with an antalgic gait. Data Data Last Documented VS Vital Signs Date Time Temp Pulse Resp B/P Pulse Ox O2 Delivery O2 Flow Rate FiO2 06/26/17 05:06 14 06/26/17 05:03 98.5 92 127/83 96 MDM Medical Decision Making Medical Screen Exam Complete: Yes Emergency Medical Condition: Yes Medical Record Reviewed: Yes Differential Diagnosis MDM: High Differential diagnoses: Fracture, sprain, strain, dislocation, contusion, neurovascular injury Narrative Course This is acute exacerbation of chronic right foot pain Diagnosis Primary Impression: acute exacerbation of chronic R foot pain Patient Instructions: General Instructions Additional Instructions: Rest. Elevation. Ice packs for the next 3 days. Limits weight-bearing as tolerated. 3 Advil every 6 hours as needed for pain. Follow-up with an orthopedist or your doctor in one week. Return to the ER if any problems Med/Other Pt SpecificInfo: No Change to Meds, No Meds Exist/No RX given Disposition: 01 DISCHARGE HOME Condition: Stable Pritesh Velez Jun 26, 2017 05:18
== END 2017-06-26 05:38 | disposition home or self-care (01) ==
LOC: NEPD 04:56
DX: M79.671 Pain in right foot (principal); G89.29 Other chronic pain; F20.0 Paranoid schizophrenia; J45.909 Unspecified asthma, uncomplicated; F31.9 Bipolar disorder, unspecified; F42.9 Obsessive-compulsive disorder, unspecified; R56.9 Unspecified convulsions; F17.200 Nicotine dependence, unspecified, uncomplicated; Z79.899 Other long term (current) drug therapy
CPT/HCPCS: 99283

== ENCOUNTER 2017-06-26 06:08 | Emergency (ER) | payer OTHER ==
[~2017-06-26] VITALS: Ht 170.2 cm; Wt 70.0 kg
[~2017-06-26 06:08] MED LIST changes: -SERO100T PO; +TRAZ100T6 PO; +VENL50TA PO
[2017-06-26 06:14] VITALS: BP 107/68; PULSE 102; RESP 18; TEMP 98.3; O2SAT 98
--- NOTE | 2017-06-26 06:25 | PD ---
HPI Chief Complaint: Psychiatric Symptoms Time Seen by Provider: 06:20 Travel History International Travel<30 days: No Contact w/Intl Traveler<30days: No Traveled to known affect area: No History of Present Illness HPI 46-year-old white male returns to the ER after being seen earlier this evening for foot pain. He is brought back by PD under a Tran act. The patient states that he is now feeling suicidal. He states that he does not feel that he was treated long enough at [facility] and was discharged to early. He would like to go back to [facility]. The patient states that he would run out to traffic to kill himself. The still complains of right foot pain. He denies any toxic ingestion. He denies any recent use of drugs. PFSH Past Medical History Narrative Medical Asthma, bipolar, paranoid schizophrenia polysubstance abuse Asthma: Yes Bipolar Disorder: Yes Diminished Hearing: No Psychiatric: Yes (OCD) Schizophrenia: Yes Seizures: Yes Past Surgical History Eye Surgery: Yes (TUMOR RIGHT EYE-CANCER) Social History Alcohol Use: No Tobacco Use: Yes (1PPD) Substance Use: Yes (COKE) Allergies-Medications (Allergen,Severity, Reaction): Coded Allergies: Depakote (Verified Allergy, Unknown, Nausea/Vomiting, 06/26/17) Per pt. Reported Meds & Prescriptions Reported Meds & Active Scripts Active Reported Effexor (Venlafaxine HCl) 50 Mg Tab 50 Mg PO Q12H Trazodone (Trazodone HCl) 100 Mg Tablet 100 Mg PO HS Review of Systems Except as stated in HPI: all other systems reviewed are Neg Musculoskeletal: Positive: Arthralgias, Pain Psychiatric: Positive: Depression, Suicidal Ideations, Mood Disorder, Substance Abuse, No: Anxiety, Disorder of Thought, Homicidal Ideation Physical Exam Narrative GENERAL: Well-nourished, well-developed patient. SKIN: Warm and dry. HEAD: Normocephalic and atraumatic. EYES: No scleral icterus. No injection or drainage. ENT: No nasal drainage noted. Mucous membranes pink. Airway patent. NECK: Supple, trachea midline. Moves head freely without obvious discomfort. CARDIOVASCULAR: Regular rate and rhythm without murmurs, gallops, or rubs. RESPIRATORY: Breath sounds equal bilaterally. No accessory muscle use. GASTROINTESTINAL: Abdomen soft, non-tender, nondistended. EXTREMITIES: No cyanosis or edema. Complains of tenderness to the right foot first metatarsal and great toe BACK: Nontender without obvious deformity. No CVA tenderness. NEURO: Patient is alert and oriented. no sensorimotor deficits. Nonfocal. Normal speech. PSYCH: No delusions. No auditory or visual hallucinations. Data Data Last Documented VS Vital Signs Date Time Temp Pulse Resp B/P Pulse Ox O2 Delivery O2 Flow Rate FiO2 06/26/17 06:14 98.3 102 18 107/68 98 Orders Psych Screen (06/26/17 06:19) Drug Screen, Random Urine (06/26/17 06:19) MDM Medical Decision Making Medical Screen Exam Complete: Yes Emergency Medical Condition: Yes Medical Record Reviewed: Yes Differential Diagnosis MDM: High Differential diagnoses: Schizophrenia, schizoaffective disorder, bipolar, anxiety, depression, adjustment reaction, mood disorder NOS, ODD, depressive disorder NOS, dementia, dementia with agitation, psychosis NOS, substance induced mood disorder, intermittent explosive disorder, Asperger syndrome, infection,electrolyte abnormality, malingering. Narrative Course Mental health screening discussed with the patient. Psychiatric screen ordered. The patient's been medically cleared. This is medical clearance for psychiatric admission, chronic right foot pain Diagnosis Primary Impression: Medical clearance for psychiatric admission Additional Impression: acute exacerbation of chronic right foot pain Condition: Stable Pritesh Velez Jun 26, 2017 06:25
[2017-06-26 09:47] VITALS: BP 101/66; PULSE 86; RESP 18; O2SAT 99
[2017-06-26] MEDS ORDERED: HALOPERIDOL LACTATE 5 MG/ML AMP ONE (11:22)
[2017-06-26] MEDS ORDERED: diphenhydrAMINE HCL 50 MG/ML VIAL ONE (11:22)
[2017-06-26] MEDS ORDERED: LORazepam 2 MG/ML VIAL ONE (11:22)
[2017-06-26] MEDS ORDERED: LORazepam 2 MG/ML VIAL IM ONE (12:00)
[2017-06-26] MEDS ORDERED: HALOPERIDOL LACTATE 5 MG/ML AMP IM ONE (12:00)
[2017-06-26] MEDS ORDERED: diphenhydrAMINE HCL 50 MG/ML VIAL IM ONE (12:00)
[2017-06-26 15:50] VITALS: BP 138/84; PULSE 80; RESP 20; TEMP 96.9; O2SAT 99
--- NOTE | 2017-06-26 16:21 | PD ---
History of Present Illness Chief Complaint: Psychiatric Symptoms Time Seen by Provider: 11:15 Travel History International Travel<30 Days: No Contact w/Intl Traveler<30days: No Known affected area: No Legal Status Legal Status: Tran Act Tran Act Signed By: Reymundo Nunez History of Present Illness: History of Present Illness HPI: This also serves as face to face evaluation for restraints 46-year-old white male with reported history of schizophrenia and substance abuse more specifically cocaine abuse who returns to the ER after being seen earlier this evening for evaluation of foot pain. He returns to ED under a BA initiate by police. The BA alleges that the patient spoke with a information security architect and told him he was going to kill himself by running into traffic. He was found running in traffic at [place] and was taken into custody. It also states that his son committed suicide and that he is depressed and very angry. Current toxicology is positive for cocaine. Patient was moved to [facility] as he is under a BA. He is agitated and has been yelling loudly. Staff has made several attempts at redirecting and deescalating.I met with patient as he is demanding to leave . He is easily agitated and has to be redirected several times as he becomes threatening towards staff. He is telling us that he needs to go because his family is waiting for him. He also states that he is moving to [place]. He refuses to allow us to contact anyone for collateral information. he becomes threatening and has punched the glass exit doors. he is yelling [employer] towrds staff and makes threats that he will find stahff and will hurt them. The patient is unable to accept verbal redirection and presents a threat to self as well as staff. he is medicated with ETO as well as restraints for safety. PFSH Past Medical History Asthma: Yes Bipolar Disorder: Yes Diminished Hearing: No Psychiatric: Yes (OCD) Schizophrenia: Yes Seizures: Yes Tetanus Vaccination: < 5 Years Influenza Vaccination: No Past Surgical History Eye Surgery: Yes (TUMOR RIGHT EYE-CANCER) Psychiatric History Psychiatric History Hx Psychiatric Treatment: PARANOID SCHIZOPHRENIA, OCD, BIPOLAR. History of Inpatient Treatment: Yes Guns or firearms in home: No (unable to determine) Social History unable to obtain Hx Alcohol Use: No Hx Tobacco Use: Yes (1PPD) Hx Substance Use: Yes (cocaine last used on thursday) Substance Use Type: Crack Hx of Substance Use Treatment: No Family Psychiatric History unable to obtain Allergies-Medications (Allergen,Severity, Reaction): Coded Allergies: Depakote (Verified Allergy, Unknown, Nausea/Vomiting, 06/26/17) Per pt. Reported Meds & Prescriptions Reported Meds & Active Scripts Active Reported Effexor (Venlafaxine HCl) 50 Mg Tab 50 Mg PO Q12H Trazodone (Trazodone HCl) 100 Mg Tablet 100 Mg PO HS Review of Systems ROS Limitations: Combative Exam Exam Limitations: Combative Alert: Yes MDM Medical Decision Making Medical Record Reviewed: Yes Assessment/Plan 46-year-old white male with reported history of schizophrenia and substance abuse more specifically cocaine abuse who returns to the ER after being seen earlier this evening for evaluation of foot pain. He returns to ED under a BA initiate by police. The BA alleges that the patient spoke with a information security architect and told him he was going to kill himself by running into traffic. He was found running in traffic at [place] and was taken into custody. It also states that his son committed suicide and that he is depressed and very angry. Is presently agitated, threatening, yelling profanities at staff , punching glass exit door and requires both chemical and physical restraints. Patient He will remain under a BA and will be placed on [facility] list for further treatment. Orders Psych Screen (06/26/17 06:19) Drug Screen, Random Urine (06/26/17 06:19) Diet Regular Basic (06/26/17 Breakfast) Lorazepam Inj (Ativan Inj) (06/26/17 11:22) Diphenhydramine Inj (Benadryl Inj) (06/26/17 11:22) Haloperidol Inj (Haldol Inj) (06/26/17 11:22) Restraints Violent (06/26/17 11:37) Lorazepam Inj (Ativan Inj) (06/26/17 12:00) Haloperidol Inj (Haldol Inj) (06/26/17 12:00) Diphenhydramine Inj (Benadryl Inj) (06/26/17 12:00) Chlorpromazine Inj (Thorazine Inj) (06/26/17 13:00) Diet Regular Basic (06/26/17 Lunch) Diet Regular Basic (06/26/17 Dinner) Results Vital Signs Date Time Temp Pulse Resp B/P Pulse Ox O2 Delivery O2 Flow Rate FiO2 06/26/17 09:47 86 18 101/66 99 06/26/17 06:14 98.3 102 18 107/68 98 Laboratory Tests Test 06/26/17 06:25 Urine Opiates Screen NEG Urine Barbiturates Screen NEG Urine Amphetamines Screen NEG Urine Benzodiazepines Screen NEG Urine Cocaine Screen POS Urine Cannabinoids Screen NEG Diagnosis Primary Impression: Cocaine abuse Condition: Stable Katlyn Walsh Jun 26, 2017 16:21
[2017-06-26 22:21] VITALS: BP 106/54; PULSE 82; RESP 18
[2017-06-27 05:58] VITALS: BP 107/59; PULSE 83; RESP 16
--- NOTE | 2017-06-27 09:00 | PD ---
History of Present Illness Chief Complaint: Psychiatric Symptoms Time Seen by Provider: 08:42 Travel History International Travel<30 Days: No Contact w/Intl Traveler<30days: No Known affected area: No Legal Status Legal Status: Tran Act Tran Act Signed By: Reymundo Nunez History of Present Illness: 46-year-old white male with reported history of schizophrenia and substance abuse including cocaine abuse who presents to ED under a BA initiated by police. The BA alleges that the patient spoke with a database security administrator and told him he was going to kill himself by running into traffic. He was found running in traffic at [place] and was taken into custody. It also states that his son committed suicide and that he is depressed and very angry. Current toxicology is positive for cocaine. Patient has been monitored in J pod. Upon his arrival to unit patient was threatening and aggressive and required ETOs as well as restraints. As per nursing report that patient had an uneventful night with no further episodes of agitation or threatening behavior. Seen this morning with nurse Criss. He is alert, oriented, calm He presents no psychosis, no jonathon. No suicidal or homicidal ideation. he states " I was high and under the influence when I said I was suicidal. I don't want to hurt myself ". I am still here so that I can prove myself that I am not going to hurt myself ". Patient reports he has medication that was given to him upon his discharge from [facility] earlier that week. PFSH Past Medical History Asthma: Yes Bipolar Disorder: Yes Diminished Hearing: No Psychiatric: Yes (OCD) Schizophrenia: Yes Seizures: Yes Tetanus Vaccination: < 5 Years Influenza Vaccination: No Past Surgical History Eye Surgery: Yes (TUMOR RIGHT EYE-CANCER) Psychiatric History Psychiatric History Hx Psychiatric Treatment: Reports hx of schizophrenia. History of Inpatient Treatment: Yes ([facility]) Guns or firearms in home: No (unable to determine) Social History Single male. Lives with his girlfriend. he provides no other history. Hx Alcohol Use: No Hx Tobacco Use: Yes (1PPD) Hx Substance Use: Yes (cocaine last used on thursday) Substance Use Type: Crack Hx of Substance Use Treatment: No Family Psychiatric History None reported Allergies-Medications (Allergen,Severity, Reaction): Coded Allergies: Depakote (Verified Allergy, Unknown, Nausea/Vomiting, 06/26/17) Per pt. Reported Meds & Prescriptions Reported Meds & Active Scripts Active Reported Effexor (Venlafaxine HCl) 50 Mg Tab 50 Mg PO Q12H Trazodone (Trazodone HCl) 100 Mg Tablet 100 Mg PO HS Review of Systems Except as stated in HPI: all other systems reviewed are Neg Exam Alert: Yes [place]: Person (ox4) Mood: Calm Affect: Appropriate Speech: Clear, Logical Eye Contact: Normal Memory Intact: Comment (No impairmetn) Hallucinations: Other (denies) Delusions: No Suicidal: Ideation (deneis any) Homicidal: Ideation (denies any) Insight/Judgement Poor. Not impaired MDM Medical Decision Making Medical Record Reviewed: Yes Assessment/Plan 46-year-old white male with reported history of schizophrenia and substance abuse including cocaine abuse who presents to ED under a BA initiated by police. The BA alleges that the patient spoke with a database security administrator and told him he was going to kill himself by running into traffic. He was found running in traffic at [place] and was taken into custody. It also states that his son committed suicide and that he is depressed and very angry. Patient at present is calm and presents no psychosis and no jonathon. He denies any suicidal or homicidal ideation, intent or plan. he is requesting discharge and presents no criteria for BA. He reports he has medications at home . Counseled regarding possible negative effects of use of substances w medications. Lift BA. Discharge to follow up with [facility]. Orders Lorazepam Inj (Ativan Inj) (06/26/17 11:22) Diphenhydramine Inj (Benadryl Inj) (06/26/17 11:22) Haloperidol Inj (Haldol Inj) (06/26/17 11:22) Restraints Violent (06/26/17 11:37) Lorazepam Inj (Ativan Inj) (06/26/17 12:00) Haloperidol Inj (Haldol Inj) (06/26/17 12:00) Diphenhydramine Inj (Benadryl Inj) (06/26/17 12:00) Chlorpromazine Inj (Thorazine Inj) (06/26/17 13:00) Diet Regular Basic (06/26/17 Lunch) Diet Regular Basic (06/26/17 Dinner) Diet Regular Basic (06/27/17 Breakfast) Results Vital Signs Date Time Temp Pulse Resp B/P Pulse Ox O2 Delivery O2 Flow Rate FiO2 06/27/17 05:58 83 16 107/59 06/26/17 22:21 82 18 106/54 06/26/17 15:50 96.9 80 20 138/84 99 Room Air 06/26/17 09:47 86 18 101/66 99 Diagnosis Primary Impression: Cocaine abuse Additional Impression: Substance induced mood disorder Ruled Out: Substance or medication-induced psychotic disorder Psychiatrically Cleared: Yes Departure Forms: Tests/Procedures Patient Instructions: General Instructions, Mood Disorders (ED), Brief Psychotic Disorder (ED) Additional Instructions: DISCHARGED HOME DIAGNOSIS DRUG INDUCED PSYCHOSIS FOLLOW UP WITH [facility] NEEDED RETURN TO ED FOR WORSENING PROBLEMS Disposition: 01 DISCHARGE HOME Condition: Stable Problem Qualifiers Katlyn Walsh Jun 27, 2017 09:00
[2017-06-27 09:05] VITALS: BP 107/59; TEMP 98.1
== END 2017-06-27 09:11 | disposition home or self-care (01) ==
LOC: NEPD 06:08 → NEPJ 06-27 09:11
DX: F14.10 Cocaine abuse, uncomplicated (principal); F15.94 Other stimulant use, unspecified with stimulant-induced mood disorder; F20.9 Schizophrenia, unspecified; J45.909 Unspecified asthma, uncomplicated; F31.9 Bipolar disorder, unspecified; F42.9 Obsessive-compulsive disorder, unspecified; R56.9 Unspecified convulsions; F17.200 Nicotine dependence, unspecified, uncomplicated; Z79.899 Other long term (current) drug therapy
CPT/HCPCS: 80307; 96372; 99285; J1200; J1630; J2060; J3230

== ENCOUNTER 2017-07-12 00:10 | Emergency (ER) | payer SELFPAY ==
[~2017-07-12] VITALS: Ht 177.8 cm; Wt 72.0 kg
[2017-07-12 00:12] VITALS: BP 123/72; PULSE 76; RESP 16; TEMP 97.8; O2SAT 99
--- NOTE | 2017-07-12 01:02 | PD ---
HPI Chief Complaint: Suicide Ideation/Attempt Time Seen by Provider: 00:57 Travel History International Travel<30 days: No Contact w/Intl Traveler<30days: No Traveled to known affect area: No History of Present Illness HPI 46-year-old white male presents to emergency department on a voluntary basis requesting psychological evaluation and treatment. The patient states that he' s been out of his medications now for approximately one week. He ran out of his trazodone, Effexor and another medication. He states that he was seen and treated at [facility]. He states that he does not know how to get to act. He states also that he has no money to fill prescriptions. This is a patient who had seen earlier in the month for complaints of suicidal ideation and substance abuse. He states that he had last used cocaine 2 days ago. He states that he took half of a Xanax earlier tonight before he came in. He states that he knew if he didn't take it he would get adequate control. He admits to feeling depressed and suicidal. He has no active plan. No toxic ingestions. No homicidal ideation. No medical complaints otherwise. PFSH Past Medical History Asthma: Yes Bipolar Disorder: Yes Diminished Hearing: No Psychiatric: Yes (OCD) Schizophrenia: Yes Seizures: Yes Tetanus Vaccination: Unknown Influenza Vaccination: No Past Surgical History Eye Surgery: Yes (TUMOR RIGHT EYE-CANCER) Social History Alcohol Use: No Tobacco Use: Yes (1PPD) Substance Use: Yes (cocaine last used on thursday) Allergies-Medications (Allergen,Severity, Reaction): Coded Allergies: divalproex sodium (Unverified Allergy, Unknown, Nausea/Vomiting, 07/12/17) Per pt. Reported Meds & Prescriptions Reported Meds & Active Scripts Active Reported Effexor (Venlafaxine HCl) 50 Mg Tab 50 Mg PO Q12H Trazodone (Trazodone HCl) 100 Mg Tablet 100 Mg PO HS Review of Systems Except as stated in HPI: all other systems reviewed are Neg Psychiatric: Positive: Anxiety, Depression, Suicidal Ideations, Mood Disorder, Substance Abuse, No: Disorder of Thought, Homicidal Ideation Physical Exam Narrative GENERAL: Well-nourished, well-developed patient. SKIN: Warm and dry. HEAD: Normocephalic and atraumatic. EYES: No scleral icterus. No injection or drainage. ENT: No nasal drainage noted. Mucous membranes pink. Airway patent. NECK: Supple, trachea midline. Moves head freely without obvious discomfort. CARDIOVASCULAR: Regular rate and rhythm without murmurs, gallops, or rubs. RESPIRATORY: Breath sounds equal bilaterally. No accessory muscle use. GASTROINTESTINAL: Abdomen soft, non-tender, nondistended. EXTREMITIES: No cyanosis or edema. BACK: Nontender without obvious deformity. No CVA tenderness. NEURO: Patient is alert and oriented. no sensorimotor deficits. Nonfocal. Normal speech. PSYCH: No delusions. No auditory or visual hallucinations. Data Data Last Documented VS Vital Signs Date Time Temp Pulse Resp B/P (MAP) Pulse Ox O2 Delivery O2 Flow Rate FiO2 07/12/17 00:41 89 18 07/12/17 00:12 97.8 123/72 (89) 99 Room Air Orders Orders Psych Screen (07/12/17 00:56) Drug Screen, Random Urine (07/12/17 00:56) MDM Medical Decision Making Medical Screen Exam Complete: Yes Emergency Medical Condition: Yes Medical Record Reviewed: Yes Differential Diagnosis MDM: High Differential diagnoses: Schizophrenia, schizoaffective disorder, bipolar, anxiety, depression, adjustment reaction, mood disorder NOS, substance induced mood disorder, malingering. Narrative Course Mental health screening discussed with the patient. Psychiatric screen ordered. The patient is been medically cleared. This is medical clearance for psychiatric admission, bipolar, substance abuse Diagnosis Primary Impression: Medical clearance for psychiatric admission Additional Impressions: Substance abuse bipolar Condition: Stable Pritesh Velez Jul 12, 2017 01:02
[2017-07-12 06:29] VITALS: BP 138/76; PULSE 86; RESP 18; O2SAT 96
[2017-07-12 08:48] VITALS: BP 118/79; PULSE 67; RESP 16; O2SAT 99
[2017-07-12 11:00] VITALS: BP 117/74; PULSE 90; RESP 18
[2017-07-12] MEDS ORDERED: ZYPR10TA PO (18:21)
[2017-07-12] MEDS ORDERED: VENL75TA PO (18:21)
[2017-07-12 22:35] VITALS: BP 110/77; PULSE 92; RESP 18
[2017-07-13 01:44] VITALS: BP 119/78; PULSE 73; RESP 20; TEMP 98.8; O2SAT 99
[2017-07-13 05:53] VITALS: BP 114/62; PULSE 79; RESP 16; TEMP 98; O2SAT 99
--- NOTE | 2017-07-13 11:13 | PD ---
Physical Exam Time Seen by Provider: 11:10 ALICE Osorio evaluated the patient and is decided to discharge the patient home with follow-up at [facility]. Data Data Last Documented VS Vital Signs Date Time Temp Pulse Resp B/P (MAP) Pulse Ox O2 Delivery O2 Flow Rate FiO2 07/13/17 05:53 98.0 79 16 114/62 (79) 99 07/12/17 22:35 Room Air Orders Orders Psych Screen (07/12/17 00:56) Drug Screen, Random Urine (07/12/17 00:56) Diet Regular Basic (07/12/17 Breakfast) Diet Regular Basic (07/12/17 Lunch) Diet Regular Basic (07/12/17 Dinner) Diet Regular Basic (07/13/17 Breakfast) Diet Regular Basic (07/13/17 Lunch) Labs Laboratory Tests Test 07/12/17 01:50 Urine Opiates Screen NEG Urine Barbiturates Screen NEG Urine Amphetamines Screen NEG Urine Benzodiazepines Screen NEG Urine Cocaine Screen POS Urine Cannabinoids Screen NEG MDM Supervised Visit with DIANA: No ALICE Rae evaluated the patient and has decided to discharge the patient home with follow-up at [facility]. Patient denies suicidal ideation. He was provided with 2+ passes to go to [facility] after discharge. Patient has outpatient follow-up. Patient has contracted safety and is stable for discharge. Diagnosis Primary Impression: Substance induced mood disorder Additional Impressions: Medical clearance for psychiatric admission Substance abuse bipolar Referrals: Primary Care Physician Psychiatrist Yesi [facility] Patient Instructions: Abuse of Alcohol (ED), Cocaine Abuse (ED), General Instructions, Mood Disorders (ED) Additional Instruction: Stopped doing drugs Stop drinking alcohol Follow-up with psychiatry Follow-up with primary care provider Follow-up with [facility] Return to emergency department immediately with worsening of symptoms Med/Other Pt SpecificInfo: No Meds Exist/No RX given Disposition: 01 DISCHARGE HOME Condition: Stable Jessica Lloyd Jul 13, 2017 11:13
--- NOTE | 2017-07-13 11:31 | PD ---
History of Present Illness Chief Complaint: Suicide Ideation/Attempt Time Seen by Provider: 10:55 Travel History International Travel<30 Days: No Contact w/Intl Traveler<30days: No Known affected area: No Legal Status Legal Status: Voluntary History of Present Illness: History of Present Illness HPI 46-year-old white male with self reported history of schizophrenia substance use disorder who presents to emergency department on a voluntary basis requesting psychological evaluation and treatment. As per ed documentation he reported having ran out of his medication, not having money to get his prescriptions and that he has been feeling suicidal. EMR reviewed. Was last evaluated on Jun at which time he was under the influence of cocaine and was agitated and threatening. Current toxicology is positive for cocaine. The patient was monitored in J pod and he presented no behavioral concerns and no suicidality. This morning he is seen with Miguelangel [facility] rn case manager. Patient is asleep but awakens with verbal prompt. He is disheveled with dirty fingernails. He is oriented. Speech is clear. He is vague with providing information and makes little effort at doing so. Marked antisocial traits are evident. No evidence of psychosis or jonathon. He states that the purpose of his visit to ED was to get back on his medications because with out them he feels suicidal. He has not made any attempt at harming himself. He repeats several times that he wants to get back on his medication because he was not able to get his other prescription due to lack of funds. He is informed of services offered by [facility] including [facility] assistance program. PFS Past Medical History Asthma: Yes Bipolar Disorder: Yes Diminished Hearing: No Psychiatric: Yes (OCD) Schizophrenia: Yes Seizures: Yes Tetanus Vaccination: Unknown Influenza Vaccination: No Past Surgical History Eye Surgery: Yes (TUMOR RIGHT EYE-CANCER) Psychiatric History Psychiatric History Hx Psychiatric Treatment: BA'd to [facility] and sent to [facility] 06/20/17. History of Inpatient Treatment: Yes Guns or firearms in home: No Social History Single male, homeless . Hx Alcohol Use: No Hx Tobacco Use: Yes (1PPD) Hx Substance Use: Yes (Uses cocaine) Substance Use Type: Crack Other Substances Used: Says he self medicated with cocaine Hx of Substance Use Treatment: No Family Psychiatric History Unknown Allergies-Medications (Allergen,Severity, Reaction): Coded Allergies: divalproex sodium (Unverified Allergy, Unknown, Nausea/Vomiting, 07/12/17) Per pt. Reported Meds & Prescriptions Reported Meds & Active Scripts Active Reported Zyprexa (Olanzapine) 10 Mg Tab 10 Mg PO HS Effexor (Venlafaxine HCl) 75 Mg Tab 75 Mg PO Q12H Trazodone (Trazodone HCl) 100 Mg Tablet 100 Mg PO HS Review of Systems Except as stated in HPI: all other systems reviewed are Neg Exam Alert: Yes [place]: Person (ox4) Mood: Angry, Calm Affect: Appropriate Speech: Clear Eye Contact: Normal Memory Intact: Comment (Not formally tetsed) Hallucinations: Other (Negative.) Delusions: No Suicidal: Ideation (Negative) Homicidal: Ideation (Negative) Insight/Judgement Poor. Poor MDM Medical Decision Making Medical Record Reviewed: Yes Assessment/Plan 46-year-old white male with self reported history of schizophrenia substance use disorder who presents to emergency department on a voluntary basis requesting psychological evaluation and treatment. Patient was monitored in J pod and presented no behavioral concerns and no suicidality. He continues to verbalize his desire to get back on his medications. He is not suicidal and his continued requests for treatment is contradictory to his initial reports of suicidality. I suspect that he is malingering his symptoms for assisted. Does not meet criteria for inpatient psychiatric treatment at this time. He is discharged to follow up with [facility]. Orders Orders Diet Regular Basic (07/12/17 Lunch) Diet Regular Basic (07/12/17 Dinner) Diet Regular Basic (07/13/17 Breakfast) Diet Regular Basic (07/13/17 Lunch) Results Vital Signs Date Time Temp Pulse Resp B/P (MAP) Pulse Ox O2 Delivery O2 Flow Rate FiO2 07/13/17 05:53 98.0 79 16 114/62 (79) 99 07/13/17 01:44 98.8 73 20 119/78 (92) 99 07/12/17 22:35 92 18 110/77 (88) Room Air Diagnosis Primary Impression: Substance induced mood disorder Additional Impression: Cocaine abuse Psychiatrically Cleared: Yes Disposition: 01 DISCHARGE HOME Condition: Stable Problem Qualifiers Katlyn Walsh [facility] Jul 13, 2017 11:31
[2017-07-13 11:33] VITALS: BP 125/74; PULSE 82; RESP 18
== END 2017-07-13 13:09 | disposition home or self-care (01) ==
LOC: NEPD 00:10 → NEPJ 07-13 13:09
DX: F19.14 Other psychoactive substance abuse with psychoactive substance-induced mood disorder (principal); F14.10 Cocaine abuse, uncomplicated; F31.9 Bipolar disorder, unspecified; J45.909 Unspecified asthma, uncomplicated
CPT/HCPCS: 80307; 99284

== ENCOUNTER 2017-11-17 22:34 | Emergency (ER) | payer SELFPAY ==
[~2017-11-17] VITALS: Ht 177.8 cm; Wt 70.0 kg
[~2017-11-17 22:34] MED LIST changes: +TRAZ100T10 PO; -TRAZ100T6 PO; -VENL50TA PO; +VENL75TA PO; +ZYPR10TA PO
[2017-11-17 22:36] VITALS: BP 121/74; PULSE 104; RESP 16; TEMP 98.1; O2SAT 98
--- NOTE | 2017-11-17 23:59 | PD ---
HPI . Chest pain/psych Chief Complaint: Chest Pain Time Seen by Provider: 23:37 Travel History International Travel<30 days: No Contact w/Intl Traveler<30days: No Traveled to known affect area: No History of Present Illness HPI 47-year-old male history of schizophrenia and bipolar disease is been off his medications for some time presents with suicidal ideations. This is an anniversary of his 21-year-old son suicide last year, as well as the concomitant holidays which got quite depressed. Patient also notes he has some pain in his left scapular region, worse with movement cough and deep breath. Patient states he has had NE many years prior, this pain does not feel like his NE, but just wanted us to know. Patient denies any change in exercise tolerance , denies any leg pain or swelling, denies any dyspnea on exertion. Patient has no plan for suicidal ideations. Patient states he wishes to get back on his medications PFSH Past Medical History Narrative Medical Past medical history reviewed Asthma: Yes Bipolar Disorder: Yes Diminished Hearing: No Psychiatric: Yes (OCD) Myocardial Infarction: Yes (PT STATES IN HIS 20'S) Schizophrenia: Yes Seizures: Yes Past Surgical History Eye Surgery: Yes (TUMOR RIGHT EYE-CANCER) Social History Alcohol Use: No Tobacco Use: Yes (1PPD) Substance Use: Yes (Uses cocaine) Allergies-Medications (Allergen,Severity, Reaction): Coded Allergies: divalproex sodium (Unverified Allergy, Unknown, Nausea/Vomiting, 11/17/17) Per pt. Reported Meds & Prescriptions Reported Meds & Active Scripts Active Reported Zyprexa (Olanzapine) 10 Mg Tab 10 Mg PO HS Effexor (Venlafaxine HCl) 75 Mg Tab 75 Mg PO Q12H Trazodone (Trazodone HCl) 100 Mg Tablet 100 Mg PO HS Narrative Medication Allergies and medications reviewed Review of Systems Except as stated in HPI: all other systems reviewed are Neg General / Constitutional: No: Fever Eyes: No: Visual changes HENT: No: Headaches Cardiovascular: Positive: Chest Pain or Discomfort Respiratory: No: Shortness of Breath Gastrointestinal: No: Abdominal Pain Genitourinary: No: Dysuria Musculoskeletal: No: Pain Skin: No Rash Neurologic: No: Weakness Psychiatric: Positive: Depression, Suicidal Ideations, Substance Abuse, No: Disorder of Thought, Mood Disorder, Homicidal Ideation Endocrine: No: Polydipsia Hematologic/Lymphatic: No: Easy Bruising Physical Exam Narrative GENERAL: Awake alert oriented 3 no acute distress. Patient is not exhibiting any toxidromes currently SKIN: Warm and dry. Color is normal no diaphoresis cyanosis or pallor HEAD: Atraumatic. Normocephalic. EYES: Pupils equal and round. No scleral icterus. No injection or drainage. ENT: No nasal bleeding or discharge. Mucous membranes pink and moist. NECK: Trachea midline. No JVD. Supple nontender full range of motion CARDIOVASCULAR: Regular rate and rhythm. S1-S2 no murmurs or gallops RESPIRATORY: No accessory muscle use. Clear to auscultation. Breath sounds equal bilaterally. GASTROINTESTINAL: Abdomen soft, non-tender, nondistended. Hepatic and splenic margins not palpable. MUSCULOSKELETAL: Extremities without clubbing, cyanosis, or edema. No obvious deformities. Tender left medial to scapula on patient's thorax, pain is reproducible with palpation and movement. No obvious deformities NEUROLOGICAL: Awake and alert. No obvious cranial nerve deficits. Motor grossly within normal limits. Five out of 5 muscle strength in the arms and legs. Normal speech. PSYCHIATRIC: Patient has been depressed, having recent suicidal ideations. See history of present illness Data Data Last Documented VS Vital Signs Date Time Temp Pulse Resp B/P (MAP) Pulse Ox O2 Delivery O2 Flow Rate FiO2 11/17/17 22:36 98.1 104 16 121/74 (90) 98 Orders Orders Electrocardiogram (11/17/17 23:54) Ckmb (Isoenzyme) Profile (11/17/17 23:54) Complete Blood Count With Diff (11/17/17 23:54) Comprehensive Metabolic Panel (11/17/17 23:54) Magnesium (Mg) (11/17/17 23:54) Prothrombin Time / Inr (Pt) (11/17/17 23:54) Act Partial Throm Time (Ptt) (11/17/17 23:54) Troponin I (11/17/17 23:54) Chest, Single Ap (11/17/17 23:54) Ecg Monitoring (11/17/17 23:54) Iv Access Insert/Monitor (11/17/17 23:54) Oximetry (11/17/17 23:54) Sodium Chloride 0.9% Flush (Ns Flush) (11/18/17 00:00) Psych Screen (11/17/17 23:56) CKMB (11/18/17 00:10) CKMB% (11/18/17 00:10) Labs Laboratory Tests Test 11/18/17 00:10 White Blood Count 7.9 TH/MM3 Red Blood Count 4.39 MIL/MM3 Hemoglobin 13.3 GM/DL Hematocrit 39.2 % Mean Corpuscular Volume 89.3 FL Mean Corpuscular Hemoglobin 30.2 PG Mean Corpuscular Hemoglobin Concent 33.8 % Red Cell Distribution Width 14.6 % Platelet Count 207 TH/MM3 Mean Platelet Volume 7.0 FL Neutrophils (%) (Auto) 57.1 % Lymphocytes (%) (Auto) 31.2 % Monocytes (%) (Auto) 8.4 % Eosinophils (%) (Auto) 2.6 % Basophils (%) (Auto) 0.7 % Neutrophils # (Auto) 4.5 TH/MM3 Lymphocytes # (Auto) 2.5 TH/MM3 Monocytes # (Auto) 0.7 TH/MM3 Eosinophils # (Auto) 0.2 TH/MM3 Basophils # (Auto) 0.1 TH/MM3 CBC Comment DIFF FINAL Differential Comment Prothrombin Time 10.0 SEC Prothromb Time International Ratio 1.0 RATIO Activated Partial Thromboplast Time 26.0 SEC Blood Urea Nitrogen 23 MG/DL Creatinine 0.95 MG/DL Random Glucose 117 MG/DL Total Protein 7.3 GM/DL Albumin 3.3 GM/DL Calcium Level 8.2 MG/DL Magnesium Level 1.9 MG/DL Alkaline Phosphatase 106 U/L Aspartate Amino Transf (AST/SGOT) 18 U/L Alanine Aminotransferase (ALT/SGPT) 21 U/L Total Bilirubin 0.1 MG/DL Sodium Level 143 MEQ/L Potassium Level 4.1 MEQ/L Chloride Level 109 MEQ/L Carbon Dioxide Level 29.9 MEQ/L Anion Gap 4 MEQ/L Estimat Glomerular Filtration Rate 85 ML/MIN Total Creatine Kinase 120 U/L Creatine Kinase MB 1.1 NG/ML Troponin I LESS THAN 0.02 NG/ML MDM Medical Decision Making Medical Screen Exam Complete: Yes Emergency Medical Condition: Yes Medical Record Reviewed: Yes Differential Diagnosis Suicidal ideations, depression, polysubstance abuse, atypical chest pain, muscular skeletal pain Narrative Course Labs reviewed, no significant abnormalities Chest x-ray normal EKG normal sinus rhythm 82 bpm, nonischemic Patient comfortable, medically cleared for psychiatric evaluation Diagnosis Primary Impression: Atypical chest pain Additional Impression: Suicidal ideations Alejandro Encarnacion MD Nov 17, 2017 23:59
[2017-11-18] VITALS: BP 124/72; PULSE 92; RESP 16; O2SAT 97
[2017-11-18] MEDS ORDERED: SODIUM CHLORIDE 0.9% FLUSH 10 ML FLUSH IVF PRN
[2017-11-18 00:22] LABS: AUTOMATED NEUTROPHIL # 4.5 TH/MM3 (1.8-7.7); BASOPHIL # 0.1 TH/MM3 (0-0.2); BASOPHIL % 0.7 % (0.0-2.0); EOSINOPHIL # 0.2 TH/MM3 (0-0.4); EOSINOPHIL % 2.6 % (0.0-4.0); HEMATOCRIT 39.2 % (39.0-51.0); HEMOGLOBIN 13.3 GM/DL (13.0-17.0); LYMPH % 31.2 % (9.0-44.0); LYMPHOCYTE # 2.5 TH/MM3 (1.0-4.8); MEAN CELL VOLUME 89.3 FL (80.0-100.0); MEAN CORPUSCULAR HEMOGLOBIN 30.2 PG (27.0-34.0); MEAN CORPUSCULAR HGB CONC 33.8 % (32.0-36.0); MONO % 8.4 % (0.0-8.0); MONOCYTE # 0.7 TH/MM3 (0-0.9); NEUT % 57.1 % (16.0-70.0); PLATELET COUNT 207 TH/MM3 (150-450); RED BLOOD COUNT 4.39 MIL/MM3 (4.50-5.90); RED CELL DISTRIBUTION WIDTH 14.6 % (11.6-17.2); WHITE BLOOD COUNT 7.9 TH/MM3 (4.0-11.0)
--- NOTE | 2017-11-18 00:25 | RADRPT ---
EXAM DATE/TIME: 11/18/2017 00:08 [facility] COMPARISON: CHEST SINGLE AP, June 08, 2017, 4:56. INDICATIONS : Chest pain. MEDICAL HISTORY : None. SURGICAL HISTORY : None. ENCOUNTER: Initial ACUITY: 1 day PAIN SCORE: 3/10 LOCATION: Bilateral chest FINDINGS: A single view of the chest demonstrates the lungs to be symmetrically aerated without evidence of mas s, infiltrate or effusion. The cardiomediastinal contours are unremarkable. Osseous structures are intact. CONCLUSION: No acute disease. Joe Fall Jr., MD on November 18, 2017 at 0:24 Board Certified Radiologist. This report was verified electronically.
[2017-11-18 00:37] LABS: ALKALINE PHOSPHATASE 106 U/L (45-117); TOTAL BILIRUBIN ADULT 0.1 MG/DL (0.2-1.0); TOTAL PROTEIN 7.3 GM/DL (6.4-8.2); TROPONIN I LESS THAN 0.02 NG/ML (0.02-0.05)
[2017-11-18 00:40] LABS: ALBUMIN 3.3 GM/DL (3.4-5.0); ALT (GPT) 21 U/L (12-78); AST (GOT) 18 U/L (15-37); BICARBONATE 29.9 MEQ/L (21.0-32.0); BLOOD UREA NITROGEN 23 MG/DL (7-18); CALCIUM 8.2 MG/DL (8.5-10.1); CHLORIDE 109 MEQ/L (98-107); CREATININE 0.95 MG/DL (0.60-1.30); GLOMERULAR FILTRATION RATE 85 ML/MIN (>89); GLUCOSE,RANDOM 117 MG/DL (74-106); MAGNESIUM 1.9 MG/DL (1.5-2.5); SODIUM (NA) 143 MEQ/L (136-145)
[2017-11-18 02:00] VITALS: PULSE 94; RESP 16; O2SAT 98
[2017-11-18 03:00] VITALS: BP 122/72; PULSE 94; RESP 16; O2SAT 98
[2017-11-18 06:35] VITALS: BP 119/80; PULSE 89; RESP 18
--- NOTE | 2017-11-18 09:49 | EKG ---
Date Performed: 11/17/2017 Time Performed: 22:41:09 PTAGE: 47 years EKG: Sinus rhythm POSSIBLE LEFT ATRIAL ENLARGEMENT POSSIBLE RIGHT VENTRICULAR CONDUCTION DELAY BORDERLINE ECG NO PREVIOUS TRACING DOCTOR: Shabbir Pineda Interpretating Date/Time 11/18/2017 09:49:32
[2017-11-18 10:15] VITALS: BP 126/56; PULSE 71; RESP 18; O2SAT 98
[2017-11-18 19:53] VITALS: BP 119/71; PULSE 95; RESP 17; TEMP 98.2; O2SAT 98
[2017-11-19 00:30] VITALS: BP 105/71; PULSE 88; RESP 17; TEMP 98.7; O2SAT 97
[2017-11-19 06:00] VITALS: BP 124/84; PULSE 84; RESP 18; TEMP 98.6; O2SAT 99
[2017-11-19 12:20] VITALS: BP 125/76; PULSE 85; RESP 18; O2SAT 98
--- NOTE | 2017-11-19 13:10 | PD ---
History of Present Illness Chief Complaint: Chest Pain Time Seen by Provider: 12:55 Travel History International Travel<30 Days: No Contact w/Intl Traveler<30days: No Known affected area: No Legal Status Legal Status: Voluntary History of Present Illness: History of Present Illness HPI 47-year-old male with reported history of schizophrenia and documented history of substance use disorder who presents to the emergency department on a voluntary status requesting a psychiatric evaluation . He reports he has been off his medications for some time and has had depressed mood as well as vague suicidal ideations presents with suicidal ideations. As per ED documentation " This is an anniversary of his 21-year-old son suicide last year, as well as the concomitant holidays which got quite depressed. Patient has no plan for suicidal ideations. Patient states he wishes to get back on his medications". Patient was monitored in secure environment and he presented no behavioral concerns. No suicidality. Patient frequently requesting food and he slept well. Patient seen . EMR reviewed. He has had previous visits to the emergency department for reported suicidal ideation usually in context of substance intoxication. He is alert, oriented disheveled male, poor hygiene and grooming. Speech is clear, logical and goal-directed. Patient admits to recent use of crack cocaine. He did not provide urine sample for toxicology. Patient does not demonstrate any evidence of any psychosis, no jonathon, no hypomania. Patient denies current suicidal or homicidal ideation, intent or plan. He does not resent any objective significant symptom of depression. He is requesting treatment for his substance use as well as wanting to get back on his psychiatric medication. He is vague as to the last time that he did take them. As per records he was seen here in June and was supposedly seen at [facility] at that time. The patient is aware of community resources available in the area and is able to access them at this time. He will be referred to [facility] for continued outpatient treatment. PFSH Past Medical History Asthma: Yes Bipolar Disorder: Yes Diminished Hearing: No Psychiatric: Yes (OCD) Myocardial Infarction: Yes (PT STATES IN HIS 20'S) Schizophrenia: Yes Seizures: Yes Past Surgical History Eye Surgery: Yes (TUMOR RIGHT EYE-CANCER) Psychiatric History Psychiatric History Hx Psychiatric Treatment: REPORTS THAT HE USED TO GET REGULAR TREATMENT FOR SCHIZOPHRENIA WHEN HE LIVED IN [place] IN 2007. CAN NOT SAY WHAT HE USED TO TAKE. REPORTS THAT HE HAS BEEBN TO [facility] ONCE. HAS BEEN SEEN IN THE ER SEVERAL TIMES AND IS CONSISTENTLY UNDER THE INFLUENCE OF COCAINE History of Inpatient Treatment: Yes Guns or firearms in home: No Social History Single, homeless, unemployed. Hx Alcohol Use: No Hx Tobacco Use: Yes (1PPD) Hx Substance Use: Yes Substance Use Type: Crack, Cocaine Other Substances Used: Says he self medicated with cocaine Hx of Substance Use Treatment: No Family Psychiatric History Negative Allergies-Medications (Allergen,Severity, Reaction): Coded Allergies: divalproex sodium (Unverified Allergy, Unknown, Nausea/Vomiting, 11/17/17) Per pt. Reported Meds & Prescriptions Reported Meds & Active Scripts Active Reported Zyprexa (Olanzapine) 10 Mg Tab 10 Mg PO HS Effexor (Venlafaxine HCl) 75 Mg Tab 75 Mg PO Q12H Trazodone (Trazodone HCl) 100 Mg Tablet 100 Mg PO HS Review of Systems Except as stated in HPI: all other systems reviewed are Neg Mental Status Examination Appearance: Dirty Consciousness: Alert Orientation: x4 Motor Activity: Normal gait Speech: Unremarkable Language: Adequate Fund of Knowledge: Adequate Attention and Concentration: Adequate Memory: Unremarkable Mood: Appropriate Affect: Appropriate Thought Process & Associations: Intact, Logical, Goal directed Thought Content: Appropriate Hallucination Type: None Delusion Type: None Suicidal Ideation: No Suicidal Plan: No Suicidal Intention: No Homicidal Ideation: No Homicidal Plan: No Homicidal Intention: No Insight: Poor Judgment: Impulsive MDM Medical Decision Making Medical Record Reviewed: Yes Assessment/Plan 47-year-old male with reported history of schizophrenia and documented history of substance use disorder who presents to the emergency department on a voluntary status requesting a psychiatric evaluation . He reports he has been off his medications for some time and has had depressed mood as well as vague suicidal ideations presents with suicidal ideations. Patient was monitored in secure environment and he presented no he will concerns. He presented no suicidality. Patient was frequently requesting to have meals. He slept well. Patient at time of this evaluation presents no suicidal or homicidal ideation. He acknowledges his continued use of substances which contributed to mood changes. He doesn't appear to be motivated to engage in treatment or to stop his use of substances. There is a suspicion that he may he presented here to the emergency department for secondary gain such as senior care. The patient is provided the resources to the community including [facility]. I have strongly encouraged him to follow up with them on a consistent basis to get back on board with this treatment if he so wishes. The patient is cognitively intact at this time. Patient does not meet Tran act criteria or criteria for in patient psychiatric care. Patient is psychiatrically clear for discharge. He will be provided bus passes to [facility]. Orders Orders Diet Regular Basic (11/18/17 Dinner) Diet Regular Basic (11/19/17 Breakfast) Drug Screen, Random Urine (11/19/17 07:26) Diet Regular Basic (11/19/17 Lunch) Results Vital Signs Date Time Temp Pulse Resp B/P (MAP) Pulse Ox O2 Delivery O2 Flow Rate FiO2 11/19/17 12:20 85 18 125/76 (92) 98 Room Air 11/19/17 06:00 98.6 84 18 124/84 (97) 99 Room Air 11/19/17 00:30 98.7 88 17 105/71 (82) 97 Room Air 11/18/17 19:53 98.2 95 17 119/71 (87) 98 Room Air Diagnosis Primary Impression: Substance induced mood disorder Additional Impression: Cocaine abuse Ruled Out: Suicidal ideations Psychiatrically Cleared: Yes Med/ Other Pt Specific Info: No Meds Exist/No RX given Disposition: 01 DISCHARGE HOME Condition: Stable Problem Qualifiers Katlyn Walsh Nov 19, 2017 13:10
--- NOTE | 2017-11-19 14:06 | PD ---
Physical Exam Time Seen by Provider: 14:05 ALICE Osorio has evaluated the patient, lifted the Tran act and cleared the patient for discharge. Data Data Last Documented VS Vital Signs Date Time Temp Pulse Resp B/P (MAP) Pulse Ox O2 Delivery O2 Flow Rate FiO2 11/19/17 14:03 11/19/17 12:20 85 18 98 Room Air 11/19/17 06:00 98.6 Orders Orders Electrocardiogram (11/17/17 23:54) Ckmb (Isoenzyme) Profile (11/17/17 23:54) Complete Blood Count With Diff (11/17/17 23:54) Comprehensive Metabolic Panel (11/17/17 23:54) Magnesium (Mg) (11/17/17 23:54) Prothrombin Time / Inr (Pt) (11/17/17 23:54) Act Partial Throm Time (Ptt) (11/17/17 23:54) Troponin I (11/17/17 23:54) Chest, Single Ap (11/17/17 23:54) Ecg Monitoring (11/17/17 23:54) Iv Access Insert/Monitor (11/17/17 23:54) Oximetry (11/17/17 23:54) Sodium Chloride 0.9% Flush (Ns Flush) (11/18/17 00:00) Psych Screen (11/17/17 23:56) CKMB (11/18/17 00:10) CKMB% (11/18/17 00:10) Diet Regular Basic (11/18/17 Breakfast) Diet Regular Basic (11/18/17 Lunch) Diet Regular Basic (11/18/17 Dinner) Diet Regular Basic (11/19/17 Breakfast) Drug Screen, Random Urine (11/19/17 07:26) Diet Regular Basic (11/19/17 Lunch) Labs Laboratory Tests Test 11/18/17 00:10 White Blood Count 7.9 TH/MM3 Red Blood Count 4.39 MIL/MM3 Hemoglobin 13.3 GM/DL Hematocrit 39.2 % Mean Corpuscular Volume 89.3 FL Mean Corpuscular Hemoglobin 30.2 PG Mean Corpuscular Hemoglobin Concent 33.8 % Red Cell Distribution Width 14.6 % Platelet Count 207 TH/MM3 Mean Platelet Volume 7.0 FL Neutrophils (%) (Auto) 57.1 % Lymphocytes (%) (Auto) 31.2 % Monocytes (%) (Auto) 8.4 % Eosinophils (%) (Auto) 2.6 % Basophils (%) (Auto) 0.7 % Neutrophils # (Auto) 4.5 TH/MM3 Lymphocytes # (Auto) 2.5 TH/MM3 Monocytes # (Auto) 0.7 TH/MM3 Eosinophils # (Auto) 0.2 TH/MM3 Basophils # (Auto) 0.1 TH/MM3 CBC Comment DIFF FINAL Differential Comment Prothrombin Time 10.0 SEC Prothromb Time International Ratio 1.0 RATIO Activated Partial Thromboplast Time 26.0 SEC Blood Urea Nitrogen 23 MG/DL Creatinine 0.95 MG/DL Random Glucose 117 MG/DL Total Protein 7.3 GM/DL Albumin 3.3 GM/DL Calcium Level 8.2 MG/DL Magnesium Level 1.9 MG/DL Alkaline Phosphatase 106 U/L Aspartate Amino Transf (AST/SGOT) 18 U/L Alanine Aminotransferase (ALT/SGPT) 21 U/L Total Bilirubin 0.1 MG/DL Sodium Level 143 MEQ/L Potassium Level 4.1 MEQ/L Chloride Level 109 MEQ/L Carbon Dioxide Level 29.9 MEQ/L Anion Gap 4 MEQ/L Estimat Glomerular Filtration Rate 85 ML/MIN Total Creatine Kinase 120 U/L Creatine Kinase MB 1.1 NG/ML Troponin I LESS THAN 0.02 NG/ML MDM Supervised Visit with DIANA: No Narrative Course ALICE Potts has evaluated the patient, lifted the Tran act and cleared the patient for discharge. The patient is being provided bus passes to [facility]. Patient contracts safety. Denies suicidal or homicidal ideations. Patient will be provided community resource packet to [facility] for follow-up. Has friends and family for support. Patient was medically cleared by alternate provider prior to psych screening. Patient has been evaluated by psychiatry and and is now cleared for discharge. Diagnosis Primary Impression: Substance induced mood disorder Additional Impression: Cocaine abuse Ruled Out: Suicidal ideations Referrals: [facility] (Out patient) call for appointment Medication Management [facility] Primary Care Physician Psychiatrist Yesi SANDOVAL Behavioral Patient Instructions: General Instructions, Cocaine Abuse (ED), Mood Disorders (ED) Departure Forms: Tests/Procedures Additional Instruction: Contract safety to your self and others Stop using drugs Follow-up with psychiatry Follow-up with primary care provider Follow-up with Tommy Cagle/[facility] Return to the emergency department immediately with worsening of symptoms Med/Other Pt SpecificInfo: No Change to Meds, No Meds Exist/No RX given Disposition: 01 DISCHARGE HOME Condition: Stable Jessica Lloyd Nov 19, 2017 14:06
== END 2017-11-19 14:04 | disposition home or self-care (01) ==
LOC: NEPC 22:34 → NEPJ 11-19 14:04
DX: F19.94 Other psychoactive substance use, unspecified with psychoactive substance-induced mood disorder (principal); F14.10 Cocaine abuse, uncomplicated; F17.200 Nicotine dependence, unspecified, uncomplicated; F31.9 Bipolar disorder, unspecified; F20.9 Schizophrenia, unspecified; Z79.899 Other long term (current) drug therapy
CPT/HCPCS: 71045; 80053; 82550; 82552; 83735; 84484; 85025; 85610; 85730; 93005